=== PATIENT | female | born 1990 | race Caucasian/White ===

== ENCOUNTER 2016-10-06 18:07 | Emergency (ER) | payer OTHER ==
--- NOTE | 2016-10-06 18:12 | PDOC ---
Rapid Medical Evaluation Time Seen by Provider: 10/06/16 18:11 Medical Evaluation: Allergies Allergy/AdvReac Type Severity Reaction Status Date / Time No Known Allergies Allergy Verified 06/21/16 17:23 10/06/16 18:11 25 yo F /26 weeks gestation c/o lower abd [id number] Denies vaginal bleed. Will be sent to OB to be monitored. 10/06/16 18:13
[2016-10-06 18:13] VITALS: BMI 39.0
[2016-10-06 18:51] VITALS: BP 115/61; PULSE 79; TEMP 98.4
[2016-10-06] MEDS ORDERED: DEXTROSE 5%-LACTATED RINGERS 500 ML IV ONE ×2 (19:30→20:30)
== END 2016-10-06 20:40 | disposition home or self-care (01) ==
LOC: JER 18:07
DX: O26.892 Other specified pregnancy related conditions, second trimester (principal); R10.30 Lower abdominal pain, unspecified; Z3A.26 26 weeks gestation of pregnancy
CPT/HCPCS: 99281-25

== ENCOUNTER 2016-12-29 01:30 | Inpatient (IN) | payer OTHER ==
[2016-12-29] MEDS ORDERED: ELECTROLYTE-148 SOLN 500 ML IV ONE ×3 (02:40→03:10)
[2016-12-29] MEDS ORDERED: CITRIC ACID/SODIUM CITRATE 30 ML UNIT-DOSE CUP PO ONE (02:40)
[2016-12-29 03:00] LABS: EOSINOPHIL 0.3 % (0-4.5); MCH 30.3 pg (25.7-33.7); MCHC 33.8 g/dl (32.0-36.0); MEAN CELL VOLUME 89.6 fl (80-96); NEUTROPHILS 79.2 % (42.8-82.8); PLATELET COUNT 163 K/MM3 (134-434); RDW 15.8 % (11.6-15.6); WHITE BLOOD COUNT 10.9 K/mm3 (4.0-10.0)
[2016-12-29 03:12] LABS: INR 1.03 (0.82-1.09); PROTHROMBIN TIME (PATIENT) 11.3 SEC (9.98-11.88)
[2016-12-29 03:14] LABS: ACTIVATED PTT 31.8 SECONDS (26.9-34.4)
[2016-12-29 03:20] LABS: CALCIUM 7.9 mg/dL (8.5-10.1); CREATININE 0.7 mg/dL (0.55-1.02)
[2016-12-29 04:06] VITALS: BMI 37.8
[2016-12-29] MEDS ORDERED: AMPICILLIN - 2 GM in SODIUM CHLORIDE 100 ML IVPB ONE (04:20)
[2016-12-29] MEDS ORDERED: ELECTROLYTE-148 SOLN 1,000 ML IV SCH (05:00)
--- NOTE | 2016-12-29 05:13 | HP ---
Past Medical History - Primary Care Physician PCP:: Kristen Daley - Admission Chief Complaint: 26 yrs 38.6 weeks by sono onset of LP since 12 .00 midnight. previous c/section, inearly labor, requests for c/section. Morbidly obese patient History of Present Illness: pNC at [facility] . Wt gain 26 lbs work UP : A pos, Rpr nr, Rubella pos, Hbsag neg, Quqntiferon neg, Hiv neg, Gbs pos, Ct/Gc neg, Pngt 124 Serial growth sono done by MFM. 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 ) ...Term: 1 ...: 0 ...Spon : 0 ...Induced : 0 ...Multiple Gestation: 0 ...LMP: 04/05/16 ... Weeks Gestation by Dates: 38.2 ...EDC by Dates: 01/10/17 ...EDC by Sono: 01/07/17 (38.5 weeks by sono ) Heme/Onc: Yes: Anemia Infectious Disease: No: AIDS, HIV, STD's Psych: No: Addictions, Anxiety, Bipolar, Depression Endocrine: No: Diabetes Insipidus, Diabetes Mellitus, Hyperthyroidism, Hypothyroidism - Past Surgical History Past Surgical History: Yes: (07/2014) Hx Myomectomy: No Hx Transabdominal Cerclage: No - Smoking History Smoking history: Never smoked Have you smoked in the past 12 months: No Aproximately how many cigarettes per day: 0 - Alcohol/Substance Use Hx Alcohol Use: No History of Substance Use: reports: None - Social History History of Recent Travel: No Home Medications - Allergies Allergies/Adverse Reactions: Allergies Allergy/AdvReac Type Severity Reaction Status Date / Time No Known Allergies Allergy Verified 12/17/16 13:04 - Home Medications Home Medications: Ambulatory Orders Vit/Iron Fumarate/FA [ Tablet] 1 each PO DAILY 05/27/14 Ferrous Sulfate [Feosol] 325 mg PO DAILY 12/17/16 Physical Exam - Maternity Vital Signs: Vital Signs Temperature 98.9 F 12/29/16 02:40 Pulse Rate 72 12/29/16 02:40 Respiratory Rate 20 12/29/16 02:40 Blood Pressure 131/81 12/29/16 02:40 O2 Sat by Pulse Oximetry (%) Constitutional: Yes: Well Nourished, Moderate Distress, Obese Eyes: Yes: WNL HENT: Yes: WNL, Normocephalic Neck: Yes: WNL Cardiovascular: Yes: WNL, Regular Rate and Rhythm Lungs: Clear to auscultation Breast(s): Yes: WNL - Abdominal Exam/OB Fundal Height: 40 Number of Fetuses: Single Presentation: Vertex Contractions: Yes Regularity: Irregular Intensity: Mild/Mod Monitor Mode: External Heart Rate (range): 150 Heart Rate Location: [facility] Category: I Accelerations: Uniform Decelerations: None - Vaginal Exam/OB Vaginal Bleediing: No Speculum Exam: No Dilatation (cm): 1 Effacement (%): 70 Amniotic Membrane Status: Intact Presentation: Vertex/Position Station: -3 - Physical Exam Musculoskeletal: Yes: WNL Extremities: Yes: WNL. No: Calf Tenderness Edema: Yes Edema: LLE: 1+, RLE: 1+ Integumentary: Yes: Incision (pfannensteil incision scar) Deep Tendon Reflex Grade: Normal +2 ...Motor Strength: WNL Psychiatric: Yes: WNL, Alert, Oriented - Labs Lab Results: CBC, BMP 12/29/16 02:45 12/29/16 02:45 Laboratory Tests 12/29/16 12/29/16 02:45 02:45 INR 1.03 PTT (Actin FS) 31.8 Blood Type A POSITIVE Hemorrhage Risk Assessment - Risk Factors Risk Score: 2 Risk Level: High Risk Problem List - Problems (1) 38 to 41 weeks gestation of Code(s): NSJ8613 - (2) Previous section complicating Code(s): O34.219 - MATERNAL CARE FOR UNSP TYPE SCAR FROM PREVIOUS DEL (3) Labor established Code(s): QCT1177 - (4) Obesity (BMI 35.0-39.9 without comorbidity) Code(s): E66.9 - OBESITY, UNSPECIFIED Assessment/Plan 26 yrs 38.5 weeks by judaho, 38.2 weeks by edwin ,previous c/s, mobidly obese, in early labor, requests for Repeat c/ection GBS pos , IV Ampicillin started 2 gm Plan Repeat LFTC/Section
[2016-12-29] MEDS ORDERED: ONDANSETRON 4 MG/2 ML VIAL IVPB PRN (06:35)
[2016-12-29] MEDS ORDERED: METHYLERGONOVINE MALEATE 0.2 MG/1 ML AMP IM PRN (07:05)
[2016-12-29] MEDS ORDERED: D5W-LR W/ 20 UNITS OXYTOCIN 1,000 ML IV SCH (07:15)
--- NOTE | 2016-12-29 07:18 | PN ---
Delivery - Delivery Section: Repeat, Low Flap Transverse (Indication 38.5 weeks, previous c /section in labor, obesity) Type of Anesthesia: Spinal Episiotomy/Laceration: None EBL (cc): 600 (obrien out put 100 ml leander color ) Delivery, Single - Stages of Labor Date 1st Stage Initiatied: 12/29/16 Time 1st Stage Initiated: 00:00 Date of Delivery: 12/29/16 Time of Delivery: 06:18 Time Placenta Delivered: 06:19 Placenta: Yes: Expressed, Uterine Exploration - Condition of Solar Sales Advisor/Pupil Personnel Services Director Present: Yes Name: Meche Liang Infant Gender: Male Weight: 6 lb 10 oz Position: Right, OT Total Hours ROM (Hrs/Mins): 7min - 1 Minute Total Score: 7 5 Minutes Total Score: 9 - Feeding Plan Initial Plan: Exclusive throughout hospitalization Remarks - Remarks Remarks: 26 yrs , 38.5 weeks , previous c/section in labor , obese, GBS pos , rx IV Ampicillin 2gm preop followed by iv Ancef 1 gm ivpb prior to incision pnc at [facility]
--- NOTE | 2016-12-29 07:24 | OP ---
Operative Note - Note: Operative Date: 12/29/16 Pre-Operative Diagnosis: 38.5 weeks, previous c/section in labor Operation: Repeat LFTC/section Findings: 6.18 am, Baby Boy, VX ROT position , cord & hand besides head , 7/9, WT 6 '10" Ht [address] iLang present in the OR Both tubes & ovaries normal Surgeon: Kristen Daley Marble Setter: Loco Patricio Anesthesiologist/BINDER AND WRAPPER PACKER: Tomás Abraham Anesthesia: Spinal Specimens Removed: placenta. cord segment for blood gas. cord blood Estimated Blood Loss (mls): 600 Drains, Volume Out (mls): 100 (obrien out put leander color ) Fluid Volume Replaced (mls): 1,000 (iv ancef 1 gm prior to incision ) Operative Report Dictated: Yes
[2016-12-29] MEDS ORDERED: AMPICILLIN - 1 GM in SODIUM CHLORIDE 100 ML IVPB SCH (08:20)
[2016-12-29] MEDS: IBUPROFEN 800 MG/8 ML IJ IVPB PRN ×2 (08:25→22:20)
--- NOTE | 2016-12-29 13:05 | OP ---
DATE OF OPERATION: 12/29/2016 PREOPERATIVE DIAGNOSIS: A 38.5-week , previous section, in labor, request for repeat section, and morbid obesity. PROCEDURE PERFORMED: Repeat [id number] section. SURGEON: Kristen Daley MD SOCIAL SCIENCE PROFESSOR: Loco Patricio MD ANESTHESIOLOGIST: Tomás Abraham MD ANESTHESIA: Spinal. INDICATIONS: This is a 26-year-old 2, para 1-0-0-1, with previous section, who presented in labor, onset of labor since midnight. She was 1 cm, 70% effaced, vertex and -3 station. The patient's weight is 194 pounds, BMI 37.9. DESCRIPTION OF PROCEDURE: The patient was taken to the operating room table. The abdomen was shaved and draped. A Krueger catheter was placed. Spinal anesthesia was given. The patient was placed in the supine position. The abdominal fat was pulled up with tape, and the area of the incision was clear. Then the abdomen was prepped with ChloraPrep. A Pfannenstiel incision was made through the previous scar, skin and subcutaneous tissue. The anterior rectus sheath was incised transversely. Bleeding points were clamped and cauterized. The rectus muscle was . Then the parietal peritoneum was opened vertically. Then the lower flap by the peritoneum was identified, which was incised transversely. The lower uterine segment was incised transversely. The amniotic fluid was clear. The baby's head was seen with a loop of cord by the side of the baby's head and the hand. Hand was attempted to be pushed up. Difficulty was encountered in delivering the head Since the patient was obese, it was difficult to bring the baby out of the incision. So the Mityvac vacuum cup was applied. And tried to bring the baby out of the incision. The baby was delivered at 6:18 a.m. Apgars were 7 and 9. Cord was clamped and cut. Cord segment was sent for cord blood gas and cord blood was collected. The placenta was removed completely with the membranes. The baby was handed over to the investigation clerk, Dr.ware Mcgregor She was present in the room. Baby's weight was 6 pounds 10 ounces, length 19 inches. The uterus was brought out of the incision. The uterine cavity was completely cleaned of the membranes. Then the uterine incision was closed in 2 layers. The 1st layer was a continuous locking with Biosyn 0 suture. The 2nd layer was continuous intermittent locking with Biosyn 0 suture. Vertical mattress sutures were taken for the 2nd sense. The bladder peritoneum also was closed with Biosyn 0 suture. Both tubes and ovaries were normal. Irrigation was done. The uterus was placed back into the peritoneal cavity. Sponge, instrument and needle counts were correct. Then closure of the abdomen was done. The parietal peritoneum was closed with Vicryl 0 suture. The muscles were approximated together with Vicryl 0 suture; interrupted sutures were taken. The anterior rectus sheath was closed with Vicryl 0 continuous sutures. Before closure of the anterior rectus sheath, the flaps underneath were checked for hemostasis. Subcutaneous tissue hemostasis was checked. The subcutaneous tissue was approximated with Vicryl 0 interrupted sutures, and then the skin was approximated with chiara. A pressure dressing was given. Blood clots were removed from the vagina. The patient was transferred to the recovery room in stable condition. Estimated blood loss was 600 mL. Intraoperative urine output was 100 mL; it was leander colored. Antonette [id number] MTDD
[2016-12-29] MEDS: CEFAZOLIN (PRE-DOCKED) 50 ML IVPB SCH ×2 (14:17→21:39)
[2016-12-29] MEDS: ENOXAPARIN NA (PORCINE) 40 MG/0.4 ML DISP.SYRIN SQ SCH (21:39)
[2016-12-29] MEDS ORDERED: oxyCODONE HCL 5 MG TABLET PO PRN (22:00)
[2016-12-30] MEDS: CEFAZOLIN (PRE-DOCKED) 50 ML IVPB SCH (05:59)
[2016-12-30] MEDS: ACETAMINOPHEN 325 MG TABLET (FP) PO PRN (06:00)
[2016-12-30] MEDS: SIMETHICONE 80 MG TAB.CHEW (FP) PO PRN ×5 (06:00→22:02)
[2016-12-30] MEDS: IBUPROFEN 600 MG TABLET (FP) PO PRN ×5 (06:00→22:02)
[2016-12-30] MEDS ORDERED: BISACODYL 10 MG SUPP.RECT RC PRN (07:05)
--- NOTE | 2016-12-30 07:26 | PN ---
Post Progress Note Post Day: 1 Type of Delivery: Repeat C/S Vital Signs: Vital Signs Temperature 98.0 F 12/30/16 06:00 Pulse Rate 67 12/30/16 06:00 Respiratory Rate 20 12/30/16 06:00 Blood Pressure 145/86 12/30/16 06:00 O2 Sat by Pulse Oximetry (%) 99 12/29/16 08:25 Breast Exam: Yes: Soft Uterus: Yes: Fundus Firm Incision: Yes: Dressing dry and intact Abdomen/GI: Yes: Abdomen soft Lochia: Yes: Rubra Lochia, amount: Small Extremities: Yes: Calves non-tender Perineum: Yes: Intact Activity: Ambulating - Labs Labs: CBC WBC 10.9 K/mm3 (4.0-10.0) H 12/29/16 02:45 RBC 4.17 M/mm3 (3.60-5.2) 12/29/16 02:45 Hgb 12.6 GM/dL (10.7-15.3) 12/29/16 02:45 Hct 37.3 % (32.4-45.2) 12/29/16 02:45 MCV 89.6 fl (80-96) 12/29/16 02:45 MCHC 33.8 g/dl (32.0-36.0) 12/29/16 02:45 RDW 15.8 % (11.6-15.6) H D 12/29/16 02:45 Plt Count 163 K/MM3 (134-434) D 12/29/16 02:45 MPV 9.0 fl (7.5-11.1) D 12/29/16 02:45 Neutrophils % 79.2 % (42.8-82.8) D 12/29/16 02:45 Lymphocytes % 14.6 % (8-40) D 12/29/16 02:45 Monocytes % 4.9 % (3.8-10.2) 12/29/16 02:45 Eosinophils % 0.3 % (0-4.5) D 12/29/16 02:45 Basophils % 1.0 % (0-2.0) 12/29/16 02:45 Assessment/Plan as above oob check labs reg diet pain meds
--- NOTE | 2016-12-30 08:06 | PN ---
Progress Note (short form) - Note Progress Note: Post op day#1.S/P C section under spinal anesthesia with duramorph uneventful.Patient stable and has little pain for which she is on medication.No any anesthesia related problem.Patient DC from the anesthesia care.
[2016-12-30 09:13] LABS: BASOPHIL 0.3 % (0-2.0); EOSINOPHIL 0.3 % (0-4.5); MCH 30.9 pg (25.7-33.7); MCHC 34.5 g/dl (32.0-36.0); MEAN CELL VOLUME 89.5 fl (80-96); MEAN PLT VOLUME 8.3 fl (7.5-11.1); NEUTROPHILS 78.7 % (42.8-82.8); PLATELET COUNT 174 K/MM3 (134-434); RDW 15.9 % (11.6-15.6); WHITE BLOOD COUNT 11.2 K/mm3 (4.0-10.0)
[2016-12-30] MEDS: oxyCODONE HCL 5 MG TABLET PO PRN ×4 (09:22→22:02)
[2016-12-30] MEDS: PRENATAL VITAMINS W/ FOLIC ACID TABLET (FP) PO SCH (09:26)
[2016-12-30] MEDS ORDERED: DIPHTH,PERTUSS(ACELL),TET 0.5 ML DISP.SYRIN IM ONE (10:00)
[2016-12-30] MEDS: SENNOSIDES/DOCUSATE COMBO (SENNA PLUS) TABLET (UD) PO PRN (20:07)
[2016-12-30] MEDS: ENOXAPARIN NA (PORCINE) 40 MG/0.4 ML DISP.SYRIN SQ SCH (21:00)
[2016-12-30] MEDS: FERROUS SO4 325 MG TABLET (FP) PO SCH (21:18)
[2016-12-31] MEDS: SIMETHICONE 80 MG TAB.CHEW (FP) PO PRN ×3 (02:07→21:38)
[2016-12-31] MEDS: IBUPROFEN 600 MG TABLET (FP) PO PRN ×4 (02:07→21:39)
[2016-12-31] MEDS: oxyCODONE HCL 5 MG TABLET PO PRN ×2 (02:09→07:12)
--- NOTE | 2016-12-31 09:17 | PN ---
Progress Note (short form) - Note Progress Note: pod 2 doing well, ambulating, CBC, BMP 12/30/16 08:00 12/29/16 02:45 Last Vital Signs Temp Pulse Resp BP Pulse Ox 98 F 80 20 126/86 99 12/31/16 09:00 12/31/16 09:00 12/31/16 09:00 12/31/16 09:00 12/29/16 08:25 abdomen soft, no distension, no cva incision dry, clean no calf tenderness plan ambulate, cbc in am
[2016-12-31] MEDS: PRENATAL VITAMINS W/ FOLIC ACID TABLET (FP) PO SCH (09:29)
[2016-12-31] MEDS: FERROUS SO4 325 MG TABLET (FP) PO SCH ×2 (09:29→21:44)
[2016-12-31] MEDS: ACETAMINOPHEN 325 MG TABLET (FP) PO PRN ×2 (14:45→21:41)
[2016-12-31] MEDS: ENOXAPARIN NA (PORCINE) 40 MG/0.4 ML DISP.SYRIN SQ SCH (21:37)
[2016-12-31] MEDS: SENNOSIDES/DOCUSATE COMBO (SENNA PLUS) TABLET (UD) PO PRN (21:42)
--- NOTE | 2017-01-01 03:26 | PN ---
Post Progress Note Post Day: 3 Type of Delivery: Repeat C/S Vital Signs: Vital Signs Temperature 98.6 F 12/31/16 22:00 Pulse Rate 82 12/31/16 22:00 Respiratory Rate 18 12/31/16 22:00 Blood Pressure 133/75 12/31/16 22:00 O2 Sat by Pulse Oximetry (%) 99 12/29/16 08:25 Breast Exam: Yes: Soft Uterus: Yes: Fundus Firm Incision: Yes: Elías intact Abdomen/GI: Yes: Abdomen soft Lochia: Yes: Rubra Lochia, amount: Small Perineum: Yes: Intact Activity: Ambulating - Labs Labs: CBC WBC 11.2 K/mm3 (4.0-10.0) H 12/30/16 08:00 RBC 4.22 M/mm3 (3.60-5.2) 12/30/16 08:00 Hgb 13.0 GM/dL (10.7-15.3) 12/30/16 08:00 Hct 37.8 % (32.4-45.2) 12/30/16 08:00 MCV 89.5 fl (80-96) 12/30/16 08:00 MCHC 34.5 g/dl (32.0-36.0) 12/30/16 08:00 RDW 15.9 % (11.6-15.6) H 12/30/16 08:00 Plt Count 174 K/MM3 (134-434) 12/30/16 08:00 MPV 8.3 fl (7.5-11.1) 12/30/16 08:00 Neutrophils % 78.7 % (42.8-82.8) 12/30/16 08:00 Lymphocytes % 17.5 % (8-40) 12/30/16 08:00 Monocytes % 3.2 % (3.8-10.2) L 12/30/16 08:00 Eosinophils % 0.3 % (0-4.5) 12/30/16 08:00 Basophils % 0.3 % (0-2.0) 12/30/16 08:00 Assessment/Plan as above continue care oob reg diet
[2017-01-01] MEDS: IBUPROFEN 600 MG TABLET (FP) PO PRN (06:20)
[2017-01-01] MEDS: SIMETHICONE 80 MG TAB.CHEW (FP) PO PRN (06:20)
[2017-01-01] MEDS: ACETAMINOPHEN 325 MG TABLET (FP) PO PRN (06:22)
[2017-01-01 08:50] VITALS: BP 134/80; PULSE 72; TEMP 97.8
[2017-01-01 09:03] LABS: BASOPHIL 0.2 % (0-2.0); EOSINOPHIL 1.6 % (0-4.5); MCHC 34.4 g/dl (32.0-36.0); MEAN CELL VOLUME 90.2 fl (80-96); MEAN PLT VOLUME 7.8 fl (7.5-11.1); NEUTROPHILS 73.4 % (42.8-82.8); PLATELET COUNT 220 K/MM3 (134-434); RDW 15.7 % (11.6-15.6)
[2017-01-01] MEDS: FERROUS SO4 325 MG TABLET (FP) PO SCH (09:17)
[2017-01-01] MEDS: PRENATAL VITAMINS W/ FOLIC ACID TABLET (FP) PO SCH (09:17)
--- NOTE | 2017-01-04 14:38 | PATH ---
Surgical Pathology Report Patient Name: SIMONE URBAN Med. Rec. 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 Specimen(s) Received PLACENTA Clinical History , 38.5 weeks, previous c/section in labor Repeat c/section Final Diagnosis PLACENTA, DELIVERY: FOCALLY DISRUPTED THIRD TRIMESTER PLACENTA WITH FOCAL INFARCT, MARKED INCREASE IN PREVILLOUS, PERIVILLOUS, AND PRECHORIONIC FIBRIN DEPOSITION, THREE VESSEL UMBILICAL CORD, AND PLACENTAL MEMBRANES WITH FOCAL ACUTE CHORIOAMNIONITIS AND FOCAL LAMELLAR NECROSIS. Electronically Signed Terence Mercado M.D. Gross Description The specimen is received fresh, labeled "placenta" and is a 674 gram, 16.0 x 15.5 x 4.0 cm placenta with attached membranes and umbilical cord. The attached membranes are flores with focal opacities and insert marginally. The umbilical cord measures 19 cm in length and averages 1.2 cm in diameter. The cord inserts eccentrically, 3.5 cm to the nearest margin. No true knots or strictures are identified. Cut surface of the umbilical cord reveals 3 vessels. The surface is velarde-blue with fibrin deposition and appropriate caliber vessels. The maternal surface is red-brown with focal defects. Sectioning reveals a 3 cm in greatest dimension flores, firm intraparenchymal lesion. The remaining placental parenchyma is red-brown and spongy. Forklift Supervisor sections are submitted in 4 cassettes as follows: 1-membrane rolls and umbilical cord; 2-lesion; 3-4-full thickness sections of placenta. /12/31/2016 saudi12/31/2016
--- NOTE | 2017-01-04 17:54 | DS ---
Physical Exam-RETAIL PERFORMANCE SPECIALIST Vital Signs: Vital Signs Temperature 97.8 F 01/01/17 07:30 Pulse Rate 72 01/01/17 07:30 Respiratory Rate 20 01/01/17 07:30 Blood Pressure 134/80 01/01/17 07:30 O2 Sat by Pulse Oximetry (%) 99 12/29/16 08:25 Constitutional: Yes: Well Nourished, Obese Eyes: Yes: WNL HENT: Yes: WNL, Normocephalic Neck: Yes: WNL Cardiovascular: Yes: WNL Respiratory: Yes: WNL Gastrointestinal: Yes: WNL, Normal Bowel Sounds, Soft, Abdomen, Obese. No: Distention ...Rectal Exam: Yes: WNL Renal/: Yes: WNL, Other (voiding without difficulty) ....Post : Yes: Uterus firm, Uterus non-tender, Moderate lochia rubra Breast(s): Yes: WNL (BF) Musculoskeletal: Yes: WNL Extremities: Yes: WNL. No: Calf Tenderness Edema: Yes Edema: LLE: 1+, RLE: 1+ Integumentary: Yes: WNL, Incision Wound/Incision: Yes: Clean/Dry, Well Approximated, [place] Intact, Open to air. No: Draining, Reddened, Bleeding Neurological: Yes: WNL, Alert, Oriented ...Motor Strength: WNL Psychiatric: Yes: WNL, Alert, Oriented Labs: CBC, BMP 01/01/17 08:00 12/29/16 02:45 Delivery - Delivery Section: Repeat, Low Flap Transverse (Indication 38.5 weeks, previous c /section in labor, obesity) Type of Anesthesia: Spinal Episiotomy/Laceration: None EBL (cc): 600 (obrien out put 100 ml leander color ) Delivery, Single - Stages of Labor Date 1st Stage Initiatied: 12/29/16 Time 1st Stage Initiated: 00:00 Date of Delivery: 12/29/16 Time of Delivery: 06:18 Time Placenta Delivered: 06:19 Placenta: Yes: Expressed, Uterine Exploration - Condition of Industrial Machine System Technician/Molding Cutter Present: Yes Name: Meche Liang Infant Gender: Male Weight: 6 lb 10 oz Position: Right, OT Total Hours ROM (Hrs/Mins): 7min - 1 Minute Total Score: 7 5 Minutes Total Score: 9 - Feeding Plan Initial Plan: Exclusive throughout hospitalization Remarks - Remarks Remarks: 26 yrs , 38.5 weeks , previous c/section in labor , obese, GBS pos , rx IV Ampicillin 2gm preop followed by iv Ancef 1 gm ivpb prior to incision pnc at [facility] . post op course uneventful discharged on 01/01/17 she will RTC on 01/04/17 for chiara removal Discharge Summary Reason For Visit: IN LABOR Condition: Stable - Instructions Diet, Activity, Other Instructions: Post Instructions DIET: Continue good diet high in protein, calcium, and iron rich foods. Drink at least eight (8) glasses of water daily in addition to other fluids. Ct Regular diet MEDICATIONS: Continue vitamins and iron as previously directed. Motrin and Tylenol may be taken for minor discomfort. ACTIVITY: Mild to moderate exercise may be started in two (2) weeks. Take frequent rest periods. Resume normal activity after six (6) week check up. WOUND CARE OF OPERATIVE SITE: Continue use of perineal bottle until vaginal discharge stops. Keep area clean. Shower daily. Keep abdominal wound dry. Report any drainage or redness to physician. Tub baths, tampons and douches are not permitted for [address] Breast feeding & or Bottle feeding BREAST CARE: (For those that are not breast feeding): If engorgement occurs: Wear tight fitting bra. Take Tylenol or Motrin for pain. Apply cold packs (ice in bags to each breast ) FAMILY PLANNING: There are many control alternatives to pursue and they should be discussed at your first office visit. You may resume sexual activity after your six (6) week check up. (Remember, breast feeding is not a contraceptive) NEXT PHYSICIAN APPOINTMENT: Be certain to call for a one (1) week appointment, unless otherwise directed. RTC Tuesday for chiara removal Call Clinic or got to Emergency Dept if you have any of the following: Heavy vaginal bleeding Painful urination Leg pain Unusual odor noted to vaginal bleeding High fever Red streaking noted on breast Referrals: Kristen Daley MD [Staff Physician] - Disposition: HOME - Home Medications Comprehensive Discharge Medication List: Ambulatory Orders Vit/Iron Fumarate/FA [ Tablet] 1 each PO DAILY 05/27/14 Acetaminophen [Tylenol .Regular Strength -] 650 mg PO Q4H PRN #0 tablet Ferrous Sulfate [Feosol] 325 mg PO DAILY #0 tab 12/30/16 Ibuprofen [Motrin -] 600 mg PO Q4H PRN #30 tablet 12/30/16 Vitamins (Sjr) - 1 tab PO DAILY tablet 12/30/16
== END 2017-01-01 14:15 | disposition home or self-care (01) | DRG 766 ==
LOC: JDEL 01:30 → JLDR 02:40 → J3W 08:53
PROVIDERS: ADMIT Obstetrics & Gynecology; ATTEND Obstetrics & Gynecology
PROC: 10D00Z1 Extraction of Products of Conception, Low, Open Approach (ICD-10-PCS; principal; 2016-12-29)
DX: O34.211 Maternal care for low transverse scar from previous cesarean delivery (principal); O99.214 Obesity complicating childbirth; E66.01 Morbid (severe) obesity due to excess calories; Z68.37 Body mass index [BMI] 37.0-37.9, adult; Z71.3 Dietary counseling and surveillance; Z3A.38 38 weeks gestation of pregnancy; Z37.0 Single live birth
CPT/HCPCS: 36415; 80048; 85025; 85610; 85730; 86593; 86850; 86900; 86901; 88307-TC; 90715; 94010

== ENCOUNTER 2017-04-06 04:32 | Emergency (ER) | payer OTHER ==
[2017-04-06 04:46] VITALS: BP 114/65; PULSE 80; BMI 37.0
--- NOTE | 2017-04-06 04:58 | PDOC ---
History of Present Illness - General Chief Complaint: Wound Stated Complaint: PIMPLE WITH PUSS ON LEG Time Seen by Provider: 04/06/17 04:47 History Source: Patient - History of Present Illness Initial Comments: 04/06/17 04:53 26 year old female with history of axila abscess now presents with multiple pustulkes to groin, legs and buttosk. + large area of induration with fluctuant to left buttocks. denies fever, nvd, abdominal pain d 04/06/17 04:56 Past History - Past Medical History Allergies/Adverse Reactions: Allergies Allergy/AdvReac Type Severity Reaction Status Date / Time No Known Allergies Allergy Verified 04/06/17 04:43 Home Medications: Ambulatory Orders Cephalexin Monohydrate [Keflex -] 500 mg PO Q8H #30 capsule 04/06/17 Ibuprofen 600 mg PO QID #30 tablet 04/06/17 Sulfamethoxazole/Trimethoprim [Bactrim Ds -] 1 tab PO BID #20 tablet 04/06/17 Asthma: No Cancer: No Cardiac Disorders: No Diabetes: No HTN: No Seizures: No Thyroid Disease: No - Reproductive History (#): 2 Para: 1 - Immunization History Td Vaccination: Yes TDAP Vaccination: No Immunization Up to Date: Yes - Psycho/Social/Smoking Cessation Hx Anxiety: No Suicidal Ideation: No Smoking Status: No Smoking History: Never smoked Years of Tobacco Use: 0 Have you smoked in the past 12 months: No Number of Cigarettes Smoked Daily: 0 Cigars Per Day: 0 Information on smoking cessation initiated: No Hx Alcohol Use: No Drug/Substance Use Hx: No Substance Use Type: None Hx Substance Use Treatment: No Review of Systems - Review of Systems Able to Perform ROS?: Yes Is the patient limited Upper Sorbian proficient: No Constitutional: No: Symptoms Reported, See HPI, Chills, Diaphoresis, Fever, Loss of Appetite, Malaise, Night Sweats, Weakness, Weight Stable, Unintentional Wgt. Loss, Unexplained wgt Loss, Other *Physical Exam - Vital Signs Last Vital Signs Temp Pulse Resp BP Pulse Ox 80 14 114/65 100 04/06/17 04:43 04/06/17 04:43 04/06/17 04:43 04/06/17 04:43 - Physical Exam General Appearance: Yes: Appropriately Dressed Respiratory/Chest: positive: Lungs Clear, Normal Breath Sounds Gastrointestinal/Abdominal: positive: Normal Bowel Sounds, Soft Integumentary: positive: Other (left buttock abscess) Neurologic: positive: Fully Oriented, Alert Procedures - Incision and Drainage I&D Site: Left: Buttock Anesthesia: 1% Lidocaine Blade Size: 11 Plain Packing: No Progress: 04/06/17 06:34 wound drained ~ 1ml of pus with surround erythema Progress Note - Progress Note Progress Note: A: cellulitis with abscess P: see procedure note. I&D cover for MRSA/ strep *DC/Admit/Observation/Transfer Diagnosis at time of Disposition: Cellulitis and abscess of buttock, Staph infection - Discharge Dispostion Disposition: HOME - Prescriptions Prescriptions: Sulfamethoxazole/Trimethoprim [Bactrim Ds -] 1 tab PO BID #20 tablet Ibuprofen 600 mg PO QID #30 tablet Cephalexin Monohydrate [Keflex -] 500 mg PO Q8H #30 capsule - Patient Instructions Printed Discharge Instructions: DI for Methicillin-Resistant Staph Infection ( MRSA) Additional Instructions: take antibiotics as prescribed. follow up with your doctor for a wound check. return to the ED if symptoms worsen.
[2017-04-06] MEDS ORDERED: LIDOCAINE HCL 1%, 10 MG/ML (20ML VIAL) ONE (05:05)
[2017-04-06] MEDS ORDERED: SULFAMETHOXAZOLE/TRIMETHOPRIM 800MG/160MG D.S. TABLET PO ONE (06:30)
[2017-04-06] MEDS ORDERED: CEPHALEXIN MONOHYDRATE 500 MG CAPSULE (UD) PO ONE (06:30)
[2017-04-06] MEDS ORDERED: SULFAMETHOXAZOLE/TRIMETHOPRIM 800MG/160MG D.S. TABLET ONE (06:46)
== END 2017-04-06 07:10 | disposition home or self-care (01) ==
LOC: JER 04:32
PROC: 0H98XZZ Drainage of Buttock Skin, External Approach (ICD-10-PCS; principal; 2017-04-06)
DX: L02.31 Cutaneous abscess of buttock (principal); B95.8 Unspecified staphylococcus as the cause of diseases classified elsewhere
CPT/HCPCS: 99282-25

== ENCOUNTER 2017-05-17 04:57 | Emergency (ER) | payer OTHER ==
[2017-05-17 05:20] VITALS: BMI 37.0
[2017-05-17] MEDS ORDERED: morphine CARPU-JECT 4 MG/1 ML DISP.SYRIN IVPUSH ONE (05:25)
[2017-05-17] MEDS ORDERED: SODIUM CHLORIDE 1,000 ML IV STA (05:25)
[2017-05-17] MEDS ORDERED: ONDANSETRON 4 MG/2 ML VIAL IVPUSH ONE (05:27)
--- NOTE | 2017-05-17 05:28 | PDOC ---
Attending Attestation - HPI HPI: 05/17/17 05:55 26 y/o F with no significant PMHx presents to the ED with constant RUQ pain for one day. Patient reports it is worsened with food. She reports associated chills and nausea. She also reports 4 episodes of non-bloody diarrhea. Denies vomiting, fever. Denies chest pain, SOB. - Physicial Exam PE: 05/17/17 05:55 GENERAL: Awake, alert, and fully oriented, in no acute distress HEAD: No signs of trauma EYES: PERRLA, EOMI, sclera anicteric, conjunctiva clear ENT: Auricles normal inspection, hearing grossly normal, nares patent, oropharynx clear without exudates. Moist mucosa NECK: Normal ROM, supple, no lymphadenopathy, JVD, or masses LUNGS: Breath sounds equal, clear to auscultation bilaterally. No wheezes, and no crackles HEART: Regular rate and rhythm, normal S1 and S2, no murmurs, rubs or gallops ABDOMEN: Tender to RUQ, epigastric and LUQ. Soft,normoactive bowel sounds. No guarding, no rebound. No masses EXTREMITIES: Normal range of motion, no edema. No clubbing or cyanosis. No cords, erythema, or tenderness NEUROLOGICAL: Cranial nerves II through XII grossly intact. Normal speech, normal gait SKIN: Warm, Dry, normal turgor, no rashes or lesions noted. Bedside US negative for gallbladder wall thickening, pericystic fluid or gallstones. - Medical Decision Making 05/17/17 05:56 Documentation prepared by Tabby Churchill, acting as medical records receptionist for Ani Ca DO. <Tabby Churchill - Last Filed: 05/17/17 05:55> - Resident Resident Name: Malachi Nguyen - ED Attending Attestation I have performed the following: I have examined & evaluated the patient, The case was reviewed & discussed with the resident, I agree w/resident's findings & plan, Exceptions are as noted - Medical Decision Making 05/17/17 05:28 I, Dr. Ani Ca DO, attest that this document has been prepared under my direction and personally reviewed by me in its entirety. I further attest, that it accurately reflects all work, treatment, procedures and medical decision -making performed by me. 10/10/17 06:03 a/p: 26yo female with epigastric pain -pud vs gerd vs gastritis, vs acute dayan -labs -bedside ultrasound negative for acute dayan -gi cocktail, ivf, pain control, lipase for poss pancreatitis -reassess 05/17/17 06:44 pt will be signed out to the oncoming ED physician pending labs and re-eval <Ani Ca - Last Filed: 05/20/17 09:09>
[2017-05-17] MEDS ORDERED: MAG HYDROX/AL HYDROX/SIMETH 355 ML ORAL.SUSP PO ONE (05:41)
[2017-05-17] MEDS ORDERED: LIDOCAINE VISCOUS 2% ORAL/TOP 20 ML UNIT-DOSE CUP MM ONE (05:41)
[2017-05-17] MEDS ORDERED: FAMOTIDINE 20 MG/50 ML IVPB 50 ML IVPB ONE ×2 (05:41→06:29)
--- NOTE | 2017-05-17 05:48 | PDOC ---
History of Present Illness <Vito Baez - Last Filed: 05/17/17 10:50> - General History Source: Patient Exam Limitations: No Limitations - History of Present Illness Initial Comments: 05/17/17 05:42 26 y.o. F with no pmh presenting with abdominal pain. Pain is located in the RUQ , radiates to back and across abdomen, 05/17, and began 24 hours ago. Patient states food makes the pain worse. She endorses chills, nausea, diarrhea. Patient denies fever, vomiting, hematuria, dysuria. PMH- none PSH- none All-[facility] Sh- denies PCP- from [facility] 05/17/17 05:49 <Malachi Nguyen - Last Filed: 05/19/17 07:22> - General Chief Complaint: Pain Stated Complaint: PAIN Time Seen by Provider: 05/17/17 05:15 Past History <Vito Baez - Last Filed: 05/17/17 10:50> - Past Medical History Asthma: No Cancer: No Cardiac Disorders: No Diabetes: No HTN: No Seizures: No Thyroid Disease: No - Reproductive History (#): 2 Para: 1 - Immunization History Td Vaccination: Yes TDAP Vaccination: No Immunization Up to Date: Yes - Suicide/Smoking/Psychosocial Hx Smoking Status: No Smoking History: Never smoked Years of Tobacco Use: 0 Have you smoked in the past 12 months: No Number of Cigarettes Smoked Daily: 0 Cigars Per Day: 0 Information on smoking cessation initiated: No Hx Alcohol Use: No Drug/Substance Use Hx: No Substance Use Type: None Hx Substance Use Treatment: No <Malachi Nguyen - Last Filed: 05/19/17 07:22> - Past Medical History Allergies/Adverse Reactions: Allergies Allergy/AdvReac Type Severity Reaction Status Date / Time No Known Allergies Allergy Verified 05/17/17 05:18 Home Medications: Ambulatory Orders Ibuprofen 600 mg PO QID #30 tablet 04/06/17 Famotidine [Pepcid] 20 mg PO BID PRN #30 tablet 05/17/17 Mag Hydrox/Al Hydrox/Simeth [Maalox Advanced Suspension] 20 ml PO BID PRN #1 oral.susp 05/17/17 Review of Systems - Review of Systems Able to Perform ROS?: Yes Comments:: 05/17/17 05:47 GENERAL/CONSTITUTIONAL: No fever +chills. No weakness. HEAD, EYES, EARS, NOSE AND THROAT: No change in vision. No ear pain or discharge. No sore throat. CARDIOVASCULAR: No chest pain or shortness of breath RESPIRATORY: No cough, wheezing, or hemoptysis. GASTROINTESTINAL: +nausea, No vomiting, +diarrhea, No constipation. +abdominal pain GENITOURINARY: No dysuria, frequency, or change in urination. MUSCULOSKELETAL: No joint or muscle swelling or pain. No neck or back pain. SKIN: No rash NEUROLOGIC: No headache, vertigo, loss of consciousness, or change in strength/ sensation. ENDOCRINE: No increased thirst. No abnormal weight change HEMATOLOGIC/LYMPHATIC: No anemia, easy bleeding, or history of blood clots. ALLERGIC/IMMUNOLOGIC: No hives or skin allergy. Constitutional: Yes: Chills. No: Fever, Loss of Appetite ABD/GI: Yes: Diarrhea, Nausea : No: Dysuria, Hematuria <Malachi Nguyen - Last Filed: 05/19/17 07:22> *Physical Exam - Vital Signs Last Vital Signs Temp Pulse Resp BP Pulse Ox 97.9 F 76 14 129/85 100 05/17/17 10:05 05/17/17 10:05 05/17/17 10:05 05/17/17 10:05 05/17/17 10:05 <Vito Baez - Last Filed: 05/17/17 10:50> - Vital Signs Last Vital Signs Temp Pulse Resp BP Pulse Ox 97.3 F L 69 14 132/97 100 05/17/17 05:18 05/17/17 05:18 05/17/17 05:18 05/17/17 05:18 05/17/17 05:18 - Physical Exam Comments: 05/17/17 05:48 GENERAL: Awake, alert, and fully oriented, in mild distress HEAD: No signs of trauma, normocephalic, atraumatic EYES: PERRLA, EOMI, sclera anicteric, conjunctiva clear ENT: Auricles normal inspection, hearing grossly normal, nares patent, oropharynx clear without exudates. Moist mucosa NECK: Normal ROM, supple, no lymphadenopathy, JVD, or masses LUNGS: No distress, speaks full sentences, clear to auscultation bilaterally HEART: Regular rate and rhythm, normal S1 and S2, no murmurs, rubs or gallops, peripheral pulses normal and equal bilaterally. ABDOMEN: Soft, +Diffuse tenderness (RUQ, Epigastric, LUQ) +guarding, +CVA tenderness, normoactive bowel sounds. EXTREMITIES: Normal inspection, Normal range of motion, no edema. No clubbing or cyanosis. NEUROLOGICAL: Cranial nerves II through XII grossly intact. Normal speech, normal gait, no focal sensorimotor deficits SKIN: Warm, Dry, normal turgor, no rashes or lesions noted. General Appearance: Yes: Apparent Distress Respiratory/Chest: positive: Lungs Clear, Normal Breath Sounds Cardiovascular: positive: Regular Rhythm, Regular Rate, S1, S2 Gastrointestinal/Abdominal: positive: Normal Bowel Sounds, Tender (LUQ, EPIGASTRIC, AND RUQ), Soft <Malachi Nguyen - Last Filed: 05/19/17 07:22> ED Treatment Course - LABORATORY CBC & Chemistry Diagram: 05/17/17 06:23 05/17/17 07:18 - ADDITIONAL ORDERS Additional order review: Laboratory Results 05/17/17 05/17/17 05/17/17 07:18 07:18 06:23 PT with INR 12.40 H INR 1.13 PTT (Actin FS) 32.3 Sodium 139 Potassium 3.8 Chloride 106 Carbon Dioxide 25 Anion Gap 8 BUN 12 Creatinine 0.6 Creat Clearance w eGFR > 60 Random Glucose 104 D Calcium 8.9 Total Bilirubin 0.6 D AST 62 H D ALT 123 H D Alkaline Phosphatase 83 D Total Protein 7.6 D Albumin 3.7 D Lipase 117 Urine Color Urine Appearance Urine pH Ur Specific [place] Urine Protein Urine Glucose (UA) Urine Ketones Urine Blood Urine Nitrite Urine Bilirubin Urine Urobilinogen Ur Leukocyte Esterase Urine RBC Urine WBC Ur Epithelial Cells Urine Bacteria Urine HCG, Qual Negative Blood Type Antibody Screen Spec Expiration Date 05/17/17 05/17/17 05/17/17 06:23 06:23 06:23 PT with INR Cancelled INR Cancelled PTT (Actin FS) Cancelled Sodium Cancelled Potassium Cancelled Chloride Cancelled Carbon Dioxide Cancelled Anion Gap Cancelled BUN Cancelled Creatinine Cancelled Creat Clearance w eGFR Cancelled Random Glucose Cancelled Calcium Cancelled Total Bilirubin Cancelled AST Cancelled ALT Cancelled Alkaline Phosphatase Cancelled Total Protein Cancelled Albumin Cancelled Lipase Cancelled Urine Color Urine Appearance Urine pH Ur Specific [place] Urine Protein Urine Glucose (UA) Urine Ketones Urine Blood Urine Nitrite Urine Bilirubin Urine Urobilinogen Ur Leukocyte Esterase Urine RBC Urine WBC Ur Epithelial Cells Urine Bacteria Urine HCG, Qual Blood Type Cancelled Antibody Screen Cancelled Spec Expiration Date Cancelled 05/17/17 06:23 PT with INR INR PTT (Actin FS) Sodium Potassium Chloride Carbon Dioxide Anion Gap BUN Creatinine Creat Clearance w eGFR Random Glucose Calcium Total Bilirubin AST ALT Alkaline Phosphatase Total Protein Albumin Lipase Urine Color Ltyellow Urine Appearance Slcloudy Urine pH 6.0 Ur Specific [place]issa >= 1.030 H Urine Protein 1+ H Urine Glucose (UA) Negative Urine Ketones Negative Urine Blood 2+ H Urine Nitrite Negative Urine Bilirubin Negative Urine Urobilinogen Negative Ur Leukocyte Esterase Negative Urine RBC <1 Urine WBC 6 Ur Epithelial Cells Moderate Urine Bacteria Rare Urine HCG, Qual Blood Type Antibody Screen Spec Expiration Date 05/17/17 06:23 RBC 4.71 D MCV 86.9 MCHC 34.1 RDW 13.1 D MPV 8.8 D Neutrophils % 51.5 D Lymphocytes % 36.3 D Monocytes % 6.1 Eosinophils % 4.9 H D Basophils % 1.2 D - Medications Given in the ED: ED Medications Discontinued Medications Generic Name Dose Route Start Last Admin Trade Name Freq PRN Reason Stop Dose Admin Al Hydroxide/Mg Hydroxide 30 ml 05/17/17 05:41 05/17/17 07:08 Mylanta Suspension - PO 05/17/17 05:42 30 ml ONCE ONE Administration Sodium Chloride 1,000 mls @ 1,000 mls/hr 05/17/17 05:25 05/17/17 07:08 Normal Saline - IV 05/17/17 06:24 1,000 mls/hr ASDIR STA Administration Famotidine/Sodium Chloride 50 mls @ 100 mls/hr 05/17/17 05:41 05/17/17 07:09 Pepcid 20 Mg Premixed Ivpb - IVPB 05/17/17 06:10 100 mls/hr ONCE ONE Administration Lidocaine HCl 20 ml 05/17/17 05:41 05/17/17 07:09 Xylocaine 2% Viscous Oral - MM 05/17/17 05:42 20 ml ONCE ONE Administration Morphine Sulfate 4 mg 05/17/17 05:25 05/17/17 07:08 Morphine Injection - IVPUSH 05/17/17 05:26 4 mg ONCE ONE Administration Ondansetron HCl 4 mg 05/17/17 05:27 05/17/17 07:08 Zofran Injection IVPUSH 05/17/17 05:28 4 mg ONCE ONE Administration <Vito Baez - Last Filed: 05/17/17 10:50> - LABORATORY CBC & Chemistry Diagram: 05/17/17 06:23 05/17/17 07:18 - RADIOLOGY Radiology Studies Ordered: Category Date Time Status ABDOMEN US -LIMITED [US] Stat Ultrasound 05/17/17 05:25 Ordered <Malachi Nguyen - Last Filed: 05/19/17 07:22> Medical Decision Making - Medical Decision Making 05/17/17 05:49 26 y.o. F with no pmh presenting with abdominal pain. Given hx/pe, concerning for cholecystitis and pancreatitis. Bedside u/s performed-- no evidence of gb wall thickening or pericholecystic fluid. Pending cbc, cmp, lipase, sx control, ua, ucx, upreg, coags, ruq us (official) Care taken over by Dr. Baez <Malachi Nguyen - Last Filed: 05/19/17 07:22> *DC/Admit/Observation/Transfer - Discharge Dispostion Admit: No <Vito Baez - Last Filed: 05/17/17 10:50> <Malachi Nguyen - Last Filed: 05/19/17 07:22> Diagnosis at time of Disposition: Steatohepatitis Abdominal pain Qualifiers: Abdominal location: right upper quadrant Qualified Code(s): R10.11 - Right upper quadrant pain - Discharge Dispostion Disposition: HOME - Prescriptions Prescriptions: Mag Hydrox/Al Hydrox/Simeth [Maalox Advanced Suspension] 20 ml PO BID PRN #1 oral.susp PRN Reason: Indigestion Famotidine [Pepcid] 20 mg PO BID PRN #30 tablet PRN Reason: Indigestion - Referrals Referrals: Damien Bell MD [Staff Physician] - - Patient Instructions Printed Discharge Instructions: Nonalcoholic Fatty Liver Disease Additional Instructions: Our workup today did not show any conditions requiring emergency care. As we discussed, there were some abnormalities in the labs and imaging that you should follow up with a GI doctor for a more complete workup. I have provided you with a referral to Dr. Damien Bell. You should call his office and make an appointment for this week. Mention that you were seen in the emergency department and they should be able to get you an earlier appointment. I have send prescriptions to your pharmacy that may help with the indigestion, For the pain you can take ibuprofen and should avoid any medications that contain Tylenol or acetaminophen. If your symptoms get worse or you develop any new or concerning symptoms, you should return to the emergency department.
[2017-05-17] MEDS ORDERED: LIDOCAINE VISCOUS 2% ORAL/TOP 20 ML UNIT-DOSE CUP ONE (06:28)
[2017-05-17] MEDS ORDERED: MAG HYDROX/AL HYDROX/SIMETH 30 ML UNIT-DOSE CUP ONE (06:29)
[2017-05-17] MEDS ORDERED: morphine CARPU-JECT 10 MG/1 ML DISP.SYRIN ONE (06:29)
[2017-05-17] MEDS ORDERED: ONDANSETRON 4 MG/2 ML VIAL ONE (06:29)
[2017-05-17 06:36] LABS: BASOPHIL 1.2 % (0-2.0); EOSINOPHIL 4.9 % (0-4.5); MCH 29.7 pg (25.7-33.7); MCHC 34.1 g/dl (32.0-36.0); MEAN CELL VOLUME 86.9 fl (80-96); MEAN PLT VOLUME 8.8 fl (7.5-11.1); NEUTROPHILS 51.5 % (42.8-82.8); PLATELET COUNT 336 K/MM3 (134-434); RDW 13.1 % (11.6-15.6); WHITE BLOOD COUNT 10.4 K/mm3 (4.0-10.0)
[2017-05-17 06:54] LABS: URINE APPEARANCE SLCLOUDY; URINE BILIRUBIN NEGATIVE (NEGATIVE); URINE BLOOD 2+ (NEGATIVE); URINE COLOR LTYELLOW; URINE GLUCOSE (UA) NEGATIVE (NEGATIVE); URINE KETONE NEGATIVE (NEGATIVE); URINE NITRITE NEGATIVE (NEGATIVE); URINE UROBILINOGEN NEGATIVE mg/dL (0.2-1.0)
--- NOTE | 2017-05-17 07:07 | PDOC ---
*Physical Exam - Vital Signs Last Vital Signs Temp Pulse Resp BP Pulse Ox 97.3 F L 69 14 132/97 100 05/17/17 05:18 05/17/17 05:18 05/17/17 05:18 05/17/17 05:18 05/17/17 05:18 05/17/17 07:13 - Physical Exam Comments: 05/17/17 07:13 GENERAL: Nourished, Appropriately dressed, AAOx3, Obese, NAD HEAD: NCAT EYES: PERRLA, EOMI, injected conjunctiva, sclera anicteric ENT: hearing grossly normal, nares patent, no congestion NECK: Supple, Normal ROM, no LAD, JVD, or masses RESP: Speaking in full sentences, Symmetrical chest expansion, no respiratory distress, lungs CTAB HEART: RRR, normal S1-S2, no MRG ABDOMEN: Soft, ttp RUQ>epigastric>LUQ, pain radiating R to L on palpation of RUQ , no guarding, no rebound, non-distended. MUSCULOSKELETAL: no CVA Tenderness EXTREMITIES: Normal inspection, Normal ROM NEUROLOGICAL: CN II-XII grossly intact. Normal speech, normal gait, no focal sensorimotor deficits SKIN: Warm, Dry, normal turgor, no rashes or lesions noted. ED Treatment Course - LABORATORY CBC & Chemistry Diagram: 05/17/17 06:23 05/17/17 07:18 - ADDITIONAL ORDERS Additional order review: Laboratory Results 05/17/17 05/17/17 05/17/17 06:23 06:23 06:23 PT with INR Cancelled INR Cancelled PTT (Actin FS) Cancelled Sodium Potassium Chloride Carbon Dioxide Anion Gap BUN Creatinine Creat Clearance w eGFR Random Glucose Calcium Total Bilirubin AST ALT Alkaline Phosphatase Total Protein Albumin Lipase Urine HCG, Qual Negative Blood Type Cancelled Antibody Screen Cancelled Spec Expiration Date Cancelled 05/17/17 06:23 PT with INR INR PTT (Actin FS) Sodium Cancelled Potassium Cancelled Chloride Cancelled Carbon Dioxide Cancelled Anion Gap Cancelled BUN Cancelled Creatinine Cancelled Creat Clearance w eGFR Cancelled Random Glucose Cancelled Calcium Cancelled Total Bilirubin Cancelled AST Cancelled ALT Cancelled Alkaline Phosphatase Cancelled Total Protein Cancelled Albumin Cancelled Lipase Cancelled Urine HCG, Qual Blood Type Antibody Screen Spec Expiration Date 05/17/17 06:23 RBC 4.71 D MCV 86.9 MCHC 34.1 RDW 13.1 D MPV 8.8 D Neutrophils % 51.5 D Lymphocytes % 36.3 D Monocytes % 6.1 Eosinophils % 4.9 H D Basophils % 1.2 D - RADIOLOGY Radiograph Interpretation: 05/17/17 09:17 [id number] US/ABDOMEN US -LIMITED EXAM: Right upper quadrant abdominal sonogram. INDICATION: Right upper quadrant pain. TECHNIQUE: Real-time grayscale and color Doppler sonogram of the right upper quadrant of the abdomen was performed by the technologist. Images are submitted for review. COMPARISON: None. FINDINGS: The liver is large in size and echogenic, measuring approximately 22 cm in length. There is no evidence of cholelithiasis, gallbladder wall thickening or pericholecystic fluid. The common bile duct is mildly dilated, measuring up to 6 mm. The distal common bile duct is obscured by bowel gas. There is no evidence of intrahepatic biliary ductal dilatation. The pancreatic head and tail are obscured by bowel gas and cannot be adequately assessed. Visualized portions of the hepatic bodies grossly unremarkable. The right kidney is normal in size measuring 12.1 cm in length with normal cortical echotexture and no hydronephrosis. The upper abdominal aorta and intrahepatic IVC are unremarkable, where imaged. No free fluid identified in the right upper quadrant. IMPRESSION: 1. No evidence of cholelithiasis or acute cholecystitis. 2. Mildly dilated common bile duct measuring 6 mm. No evidence of intrahepatic biliary ductal dilatation. Please correlate clinically with pancreatic enzymes, LFTs and serum biliary markers. Reevaluation on short-term follow-up sonogram is recommended. 3. Pancreatic head and tail are obscured by bowel gas and cannot be adequately assessed. 4. Hepatic steatosis with large size measuring 22 cm in length which may be related to hepatomegaly and/or Leny's lobe variant. Progress Note - Progress Note Progress Note: Patient is a stable 26 year old female signed out to me by Dr. Malachi Nguyen Patient presented with RUQ pain radiating to back (-) Bedside US Waiting labs and official US Medical Decision Making - Medical Decision Making 05/17/17 07:06 26 year old female with no PMH and RUQ pain Ddx: Cholecystitis, pancreatitis, nephrolithiasis, ectopic , hepatitis , GERD Review labs and imaging 05/17/17 07:07 CBC WBC 10.4 K/mm3 (4.0-10.0) H 05/17/17 06:23 RBC 4.71 M/mm3 (3.60-5.2) D 05/17/17 06:23 Hgb 14.0 GM/dL (10.7-15.3) D 05/17/17 06:23 Hct 40.9 % (32.4-45.2) D 05/17/17 06:23 MCV 86.9 fl (80-96) 05/17/17 06:23 MCH 29.7 pg (25.7-33.7) 05/17/17 06:23 MCHC 34.1 g/dl (32.0-36.0) 05/17/17 06:23 RDW 13.1 % (11.6-15.6) D 05/17/17 06:23 Plt Count 336 K/MM3 (134-434) D 05/17/17 06:23 MPV 8.8 fl (7.5-11.1) D 05/17/17 06:23 Neutrophils % 51.5 % (42.8-82.8) D 05/17/17 06:23 Lymphocytes % 36.3 % (8-40) D 05/17/17 06:23 Monocytes % 6.1 % (3.8-10.2) 05/17/17 06:23 Eosinophils % 4.9 % (0-4.5) H D 05/17/17 06:23 Basophils % 1.2 % (0-2.0) D 05/17/17 06:23 Reviewed and non concerning 05/17/17 07:37 Urine Test Results Urine Color Ltyellow 05/17/17 06:23 Urine Appearance Slcloudy 05/17/17 06:23 Urine pH 6.0 (5.0-8.0) 05/17/17 06:23 Urine Protein 1+ (NEGATIVE) H 05/17/17 06:23 Urine Glucose (UA) Negative (NEGATIVE) 05/17/17 06:23 Urine Ketones Negative (NEGATIVE) 05/17/17 06:23 Urine Blood 2+ (NEGATIVE) H 05/17/17 06:23 Urine Nitrite Negative (NEGATIVE) 05/17/17 06:23 Urine Bilirubin Negative (NEGATIVE) 05/17/17 06:23 Urine RBC <1 /hpf (0-3) 05/17/17 06:23 Urine WBC 6 /hpf (3-5) 05/17/17 06:23 Ur Epithelial Cells Moderate /hpf (FEW) 05/17/17 06:23 Urine Bacteria Rare /hpf (NONE SEEN) 05/17/17 06:23 (+) blood w/o RBC, more consistent for rhabdo/muscle than nephrolithiasis (-) 05/17/17 09:06 CMP Sodium 139 mmol/L (136-145) 05/17/17 07:18 Potassium 3.8 mmol/L (3.5-5.1) 05/17/17 07:18 Chloride 106 mmol/L (98-107) 05/17/17 07:18 Carbon Dioxide 25 mmol/L (21-32) 05/17/17 07:18 Anion Gap 8 (8-16) 05/17/17 07:18 BUN 12 mg/dL (7-18) 05/17/17 07:18 Creatinine 0.6 mg/dL (0.55-1.02) 05/17/17 07:18 Creat Clearance w eGFR > 60 (>60) 05/17/17 07:18 Random Glucose 104 mg/dL (74-106) D 05/17/17 07:18 Calcium 8.9 mg/dL (8.5-10.1) 05/17/17 07:18 Total Bilirubin 0.6 mg/dL (0.2-1.0) D 05/17/17 07:18 AST 62 U/L (15-37) H D 05/17/17 07:18 ALT 123 U/L (12-78) H D 05/17/17 07:18 Alkaline Phosphatase 83 U/L (45-117) D 05/17/17 07:18 Total Protein 7.6 g/dl (6.4-8.2) D 05/17/17 07:18 Albumin 3.7 g/dl (3.4-5.0) D 05/17/17 07:18 Lipase 117 U/L (73-393) 05/17/17 07:18 Laboratory Tests 05/17/17 07:18 PT with INR 12.40 H INR 1.13 PTT (Actin FS) 32.3 Elevated liver enzymes and mild increase in PT concerning for hepatitis Lipase wnl 05/17/17 09:18 US shows dilitation of CBD, 6mm No evidence of cholelithiasis or acute cholecystitis Hepatomegaly with steatosis 05/17/17 10:27 Discussed with patient the need for GI followup, importance of improving diet and exercise Informed her that I would be providing her with a GI referral and she needed to make an early appointment She expressed her understanding and agreement with the plan and information provided. *DC/Admit/Observation/Transfer Diagnosis at time of Disposition: Steatohepatitis Abdominal pain Qualifiers: Abdominal location: right upper quadrant Qualified Code(s): R10.11 - Right upper quadrant pain - Discharge Dispostion Disposition: HOME Admit: No - Prescriptions Prescriptions: Mag Hydrox/Al Hydrox/Simeth [Maalox Advanced Suspension] 20 ml PO BID PRN #1 oral.susp PRN Reason: Indigestion Famotidine [Pepcid] 20 mg PO BID PRN #30 tablet PRN Reason: Indigestion - Referrals Referrals: Damien Bell MD [Staff Physician] - - Patient Instructions Printed Discharge Instructions: Nonalcoholic Fatty Liver Disease Additional Instructions: Our workup today did not show any conditions requiring emergency care. As we discussed, there were some abnormalities in the labs and imaging that you should follow up with a GI doctor for a more complete workup. I have provided you with a referral to Dr. Damien Bell. You should call his office and make an appointment for this week. Mention that you were seen in the emergency department and they should be able to get you an earlier appointment. I have send prescriptions to your pharmacy that may help with the indigestion, For the pain you can take ibuprofen and should avoid any medications that contain Tylenol or acetaminophen. If your symptoms get worse or you develop any new or concerning symptoms, you should return to the emergency department.
[2017-05-17 07:11] LABS: URINE PROTEIN 1+ (NEGATIVE)
[2017-05-17 07:16] LABS: URINE BACTERIA RARE /hpf (NONE SEEN); URINE RBC <1 /hpf (0-3); URINE WBC 6 /hpf (3-5)
[2017-05-17 07:59] LABS: ALBUMIN 3.7 g/dl (3.4-5.0); ALK PHOS 83 U/L (45-117); ANION GAP 8 (8-16); BILIRUBIN,TOTAL 0.6 mg/dL (0.2-1.0); CALCIUM 8.9 mg/dL (8.5-10.1); CO2 25 mmol/L (21-32); CREATININE 0.6 mg/dL (0.55-1.02); GLUCOSE,RANDOM 104 mg/dL (74-106); INR 1.13 (0.82-1.09); PROTHROMBIN TIME (PATIENT) 12.4 SEC (9.98-11.88); SGOT/AST 62 U/L (15-37); SGPT/ALT 123 U/L (12-78); TOT PROT 7.6 g/dl (6.4-8.2)
[2017-05-17 08:02] LABS: ACTIVATED PTT 32.3 SECONDS (26.9-34.4)
[2017-05-17 09:21] LABS: URINE LEUK ESTERASE Negative (NEGATIVE)
[2017-05-17 10:06] VITALS: BP 129/85; PULSE 76; TEMP 97.9
== END 2017-05-17 11:18 | disposition home or self-care (01) ==
LOC: JER 04:57
PROC: 3E033GC Introduction of Other Therapeutic Substance into Peripheral Vein, Percutaneous Approach (ICD-10-PCS; principal; 2017-05-17)
PROC: 3E033NZ Introduction of Analgesics, Hypnotics, Sedatives into Peripheral Vein, Percutaneous Approach (ICD-10-PCS; 2017-05-17)
PROC: 3E0337Z Introduction of Electrolytic and Water Balance Substance into Peripheral Vein, Percutaneous Approach (ICD-10-PCS; 2017-05-17)
DX: K75.81 Nonalcoholic steatohepatitis (NASH) (principal); R10.11 Right upper quadrant pain
CPT/HCPCS: 36415; 76705-TC; 80053; 81003; 81015; 83690; 84703; 85025; 85610; 85730; 87086; 99282-25

== ENCOUNTER 2017-05-26 07:15 | Day surgery (SDC) | payer OTHER ==
[2017-05-25 11:59] VITALS: BMI 38.0
[2017-05-26] MEDS ORDERED: PROPOFOL 20 ML ONE ×3 (07:55)
[2017-05-26] MEDS ORDERED: LIDOCAINE HCL/PF 2% SDV 5ML VIAL ONE (07:55)
[2017-05-26 08:23] VITALS: TEMP 97.8
--- NOTE | 2017-05-26 08:37 | PROC ---
Endoscopy Procedure Endoscopy procedure completed. Please see scanned procedure report.
[2017-05-26 09:15] VITALS: BP 138/90; PULSE 64
--- NOTE | 2017-05-27 15:14 | PATH ---
Surgical Pathology Report Patient Name: SIMONE URBAN [facility]. Rec. #: [id number] /Age/Gender: 1990 (Age: 26) / F Account: [id number] Location: [facility]-ENDOSCOPY Taken: 05/26/2017 Received: 05/26/2017 Reported: 05/27/2017 Physicians: Damien Bell M.D. Specimen(s) Received A: BX DUODENUM B: BX ANTRUM AND BODY C: BX GE JUNCTION Clinical History Abdominal pain Gastric ulcer, reflux Final Diagnosis A. DUODENUM, SECOND PORTION, BIOPSY: DUODENAL MUCOSA WITH NO PATHOLOGIC CHANGES. NO HISTOLOGIC EVIDENCE OF GLUTEN SENSITIVE ENTEROPATHY (CELIAC SPRUE) IDENTIFIED. B. STOMACH, ANTRUM AND BODY, BIOPSY: GASTRIC ANTRAL MUCOSA WITH SUPERFICIAL ULCERATION AND REACTIVE, AND GASTRIC FUNDIC MUCOSA WITH NO PATHOLOGIC CHANGES. IMMUNOSTAIN FOR H. PYLORI IS NEGATIVE. C. GE JUNCTION, BIOPSY: SQUAMOUS AND GASTRIC MUCOSA WITH CHRONIC INFLAMMATION AND PAPILLOMATOSIS SUGGESTIVE OF REFLUX ESOPHAGITIS. FOCAL ULCERATION IS PRESENT. NO INTESTINAL METAPLASIA IDENTIFIED (NO SCHERER'S IDENTIFIED). FUNGAL STAIN (PAS) IS NEGATIVE. Electronically Signed Alejandro Barrera M.D. Gross Description A. Received in formalin, labeled "biopsy second portion of duodenum" are 2 flores, irregular portions of soft tissue measuring 0.2 and 0.3 cm. in greatest dimension. The specimens are submitted in toto in one cassette. B. Received in formalin, labeled "biopsy antrum and body" are 3 flores, irregular portions of soft tissue ranging from 0.3-0.4 cm. in greatest dimension. The specimens are submitted in toto in one cassette. C. Received in formalin, labeled "biopsy GE junction" are 3 flores, irregular portions of soft tissue ranging from 0.1-0.5 cm. in greatest dimension. The specimens are submitted in toto in one cassette. 05/26/2017 saudi05/26/2017
== END 2017-05-26 09:26 | disposition home or self-care (01) ==
LOC: JASU-ENDO 07:15
PROVIDERS: ATTEND Internal Medicine Gastroenterology
PROC: 0DB68ZX Excision of Stomach, Via Natural or Artificial Opening Endoscopic, Diagnostic (ICD-10-PCS; 2017-05-26)
PROC: 0DB48ZX Excision of Esophagogastric Junction, Via Natural or Artificial Opening Endoscopic, Diagnostic (ICD-10-PCS; 2017-05-26)
PROC: 0DB98ZX Excision of Duodenum, Via Natural or Artificial Opening Endoscopic, Diagnostic (ICD-10-PCS; principal; 2017-05-26 08:00)
DX: K20.9 Esophagitis, unspecified (principal); K25.9 Gastric ulcer, unspecified as acute or chronic, without hemorrhage or perforation
CPT/HCPCS: 84703; 88305-TC; 88312-TC; 88342-TC

== ENCOUNTER 2017-09-26 15:32 | Emergency (ER) | payer OTHER ==
--- NOTE | 2017-09-26 16:15 | PDOC ---
Rapid Medical Evaluation Time Seen by Provider: 09/26/17 16:12 Medical Evaluation: Allergies Allergy/AdvReac Type Severity Reaction Status Date / Time No Known Allergies Allergy Verified 05/17/17 05:18 09/26/17 16:12 I have performed a brief in-person evaluation of this patient. The patient presents with a chief complaint of: MIX, fever (Tmax 102.8F), body aches since Tuesday, denies URI symptoms, denies N/V/D Pertinent physical exam findings: well appearing, lungs ctab, HR 103 I have ordered the following: nothing The patient will proceed to the ED for further evaluation. Discharge Disposition - Diagnosis Fever - Referrals - Patient Instructions - Post Discharge Activity
[2017-09-26 16:19] VITALS: BP 137/67; PULSE 103; TEMP 98; BMI 36.6
--- NOTE | 2017-09-26 16:32 | PDOC ---
History of Present Illness - General Chief Complaint: Cold Symptoms Stated Complaint: FEVER Time Seen by Provider: 09/26/17 16:12 History Source: Patient Exam Limitations: No Limitations - History of Present Illness Initial Comments: CHIEF COMPLAINT: 26 y/o afebrile female c/o fever, body aches and headache x 2 days. HISTORY OF PRESENT ILLNESS: The patient states her temp almost reached 103 at home. She took 325mg of tylenol at noon today for the fever. She denies cough , runny nose, congestion, n/v/d, CP, SOB, abd pain, hematuria, dysuria. Past History - Past Medical History Allergies/Adverse Reactions: Allergies Allergy/AdvReac Type Severity Reaction Status Date / Time No Known Allergies Allergy Verified 05/17/17 05:18 Home Medications: Ambulatory Orders NK [No Known Home Medication] 09/26/17 Anemia: No Asthma: No Cancer: No Cardiac Disorders: No CVA: No COPD: No CHF: No Dementia: No Diabetes: No GI Disorders: No Disorders: No HTN: No Hypercholesterolemia: No Liver Disease: No Seizures: No Thyroid Disease: No - Surgical History Orthopedic Surgery: No - Reproductive History (#): 2 Para: 1 - Immunization History Td Vaccination: Yes TDAP Vaccination: No Immunization Up to Date: Yes - Suicide/Smoking/Psychosocial Hx Smoking Status: No Smoking History: Never smoked Years of Tobacco Use: 0 Have you smoked in the past 12 months: No Number of Cigarettes Smoked Daily: 0 Cigars Per Day: 0 Information on smoking cessation initiated: No Hx Alcohol Use: No Drug/Substance Use Hx: No Substance Use Type: None Hx Substance Use Treatment: No Review of Systems - Review of Systems Able to Perform ROS?: Yes Constitutional: Yes: Chills, Fever, Other (body aches) HEENTM: No: Ear Pain, Nose Pain, Nose Congestion, Throat Pain, Throat Swelling, Difficulty Swallowing Respiratory: No: Symptoms reported Cardiac (ROS): No: Symptoms Reported ABD/GI: No: Symptoms Reported : No: Symptoms Reported Neurological: Yes: Headache *Physical Exam - Vital Signs Last Vital Signs Temp Pulse Resp BP Pulse Ox 98 F 103 H 20 137/67 100 09/26/17 16:16 09/26/17 16:16 09/26/17 16:16 09/26/17 16:16 09/26/17 16:16 - Physical Exam Comments: Non toxic but ill appearing obese female in NAD or obvious discomfort. General Appearance: Yes: Nourished, Appropriately Dressed, Obese. No: Apparent Distress HEENT: positive: EOMI, CHERYL, Normal Voice, TMs Normal, Pharynx Normal. negative : Tonsillar Exudate, Tonsillar Erythema, Nasal Congestion, Rhinorrhea Neck: negative: Lymphadenopathy (R), Lymphadenopathy (L) Respiratory/Chest: positive: Lungs Clear, Normal Breath Sounds. negative: Respiratory Distress, Wheezing Cardiovascular: positive: Regular Rhythm, Tachycardia Gastrointestinal/Abdominal: positive: Normal Bowel Sounds. negative: Tender, Guarding Medical Decision Making - Medical Decision Making A/P: 26 y/o afebrile, tachycardic female with flu like symptoms. Plan is as follows: 1. hcg/UA 2. IM toradol hcg - negative The patient feels no better after toradol. she admits she feels like she is going to fall down if she gets up and still has a MIX. Will send her to main ER for further work up. *DC/Admit/Observation/Transfer Diagnosis at time of Disposition: Headache, Fever, Body aches - Referrals - Patient Instructions - Post Discharge Activity
[2017-09-26 17:10] LABS: URINE APPEARANCE CLEAR; URINE BILIRUBIN NEGATIVE (NEGATIVE); URINE BLOOD NEGATIVE (NEGATIVE); URINE COLOR YELLOW; URINE GLUCOSE (UA) NEGATIVE (NEGATIVE); URINE KETONE NEGATIVE (NEGATIVE); URINE LEUK ESTERASE TRACE (NEGATIVE); URINE NITRITE NEGATIVE (NEGATIVE); URINE UROBILINOGEN 4.0 E.U/dl mg/dL (0.2-1.0)
[2017-09-26 17:17] LABS: URINE PROTEIN 2+ (NEGATIVE)
[2017-09-26 17:20] LABS: EPI CELLS RARE /HPF (FEW); URINE BACTERIA RARE /hpf (NONE SEEN); URINE MUCUS RARE
[2017-09-26] MEDS ORDERED: KETOROLAC TROMETHAMINE 60 MG/2 ML VIAL IM ONE (17:23)
[2017-09-26] MEDS ORDERED: KETOROLAC TROMETHAMINE 60 MG/2 ML VIAL ONE (17:27)
--- NOTE | 2017-09-26 18:51 | PDOC ---
History of Present Illness - General Chief Complaint: Cold Symptoms Stated Complaint: FEVER Time Seen by Provider: 09/26/17 16:12 History Source: Patient - History of Present Illness Timing/Duration: reports: yesterday Associated Symptoms: reports: fever/chills, headache, muscle aches. denies: chest pain/soreness, cough, earache, facial pain, lightheadedness, nasal congestion, nasal drainage, shortness of breath, sore throat, wheezing Past History - Past Medical History Allergies/Adverse Reactions: Allergies Allergy/AdvReac Type Severity Reaction Status Date / Time No Known Allergies Allergy Verified 05/17/17 05:18 Home Medications: Ambulatory Orders Oseltamivir Phosphate [Tamiflu] 75 mg PO BID #10 capsule 09/26/17 Anemia: No Asthma: No Cancer: No Cardiac Disorders: No CVA: No COPD: No CHF: No Dementia: No Diabetes: No GI Disorders: No Disorders: No HTN: No Hypercholesterolemia: No Liver Disease: No Seizures: No Thyroid Disease: No - Surgical History Orthopedic Surgery: No - Reproductive History (#): 2 Para: 1 - Immunization History Td Vaccination: Yes TDAP Vaccination: No Immunization Up to Date: Yes - Suicide/Smoking/Psychosocial Hx Smoking Status: No Smoking History: Never smoked Years of Tobacco Use: 0 Have you smoked in the past 12 months: No Number of Cigarettes Smoked Daily: 0 Cigars Per Day: 0 Information on smoking cessation initiated: No Hx Alcohol Use: No Drug/Substance Use Hx: No Substance Use Type: None Hx Substance Use Treatment: No Review of Systems - Review of Systems Constitutional: Yes: Chills, Fever, Malaise Respiratory: No: Cough, Shortness of Breath Cardiac (ROS): No: Chest Pain ABD/GI: No: Diarrhea, Nausea, Vomiting *Physical Exam - Vital Signs Last Vital Signs Temp Pulse Resp BP Pulse Ox 98 F 103 H 20 137/67 100 09/26/17 16:16 09/26/17 16:16 09/26/17 16:16 09/26/17 16:16 09/26/17 16:16 - Physical Exam General Appearance: Yes: Appropriately Dressed. No: Apparent Distress HEENT: positive: Normal ENT Inspection, Normal Voice. negative: Scleral Icterus (R), Scleral Icterus (L) Neck: positive: Supple. negative: Lymphadenopathy (R), Lymphadenopathy (L) Respiratory/Chest: positive: Lungs Clear, Normal Breath Sounds. negative: Respiratory Distress Cardiovascular: positive: Regular Rate, S1, S2 Gastrointestinal/Abdominal: positive: Soft. negative: Tender Integumentary: positive: Dry, Warm Neurologic: positive: Fully Oriented, Alert, Normal Mood/Affect ED Treatment Course - ADDITIONAL ORDERS Additional order review: Laboratory Results 09/26/17 09/26/17 17:12 17:12 Urine Color Yellow Urine Appearance Clear Urine pH 6.0 Ur Specific [place] 1.025 Urine Protein 2+ H Urine Glucose (UA) Negative Urine Ketones Negative Urine Blood Negative Urine Nitrite Negative Urine Bilirubin Negative Urine Urobilinogen 4.0 e.u/dl H Ur Leukocyte Esterase Trace Urine WBC (Auto) 11 Urine RBC (Auto) 3 Ur Epithelial Cells Rare Urine Bacteria Rare Urine Mucus Rare Urine HCG, Qual Negative - Medications Given in the ED: ED Medications Discontinued Medications Generic Name Dose Route Start Last Admin Trade Name Freq PRN Reason Stop Dose Admin Ketorolac Tromethamine 60 mg 09/26/17 17:23 09/26/17 17:27 Toradol Injection - IM 09/26/17 17:24 60 mg ONCE ONE Administration Medical Decision Making - Medical Decision Making 09/26/17 18:47 26-year-old female, no significant history here with headache with body aches and fever of 102F 2 days. No cough, sob, abdominal pain, nausea, vomiting or diarrhea. No sick contacts or recent travel. Patient appears uncomfortable in ED with mild tachycardia to 103 that decreased to 90 on my reassessment, afebrile with unremarkable exam otherwise. Suspect influenza, but unable to test in ED secondary to no reagent in facility. Will dc with supportive treatment and Tamiflu. Reasons to return discussed with patient. 09/26/17 18:50 *DC/Admit/Observation/Transfer Diagnosis at time of Disposition: Viral syndrome - Discharge Dispostion Disposition: HOME Condition at time of disposition: Improved - Prescriptions Prescriptions: Oseltamivir Phosphate [Tamiflu] 75 mg PO BID #10 capsule - Referrals - Patient Instructions Additional Instructions: You may have the flu. Rest, drink plenty of fluids, take Tylenol or Motrin for pain and/or fever and take Tamiflu as directed. If symptoms worsen, return to ER - Post Discharge Activity
== END 2017-09-26 20:28 | disposition home or self-care (01) ==
LOC: JERFT 15:32 → JER 15:32
PROC: 3E0233Z Introduction of Anti-inflammatory into Muscle, Percutaneous Approach (ICD-10-PCS; principal; 2017-09-26)
DX: B34.9 Viral infection, unspecified (principal)
CPT/HCPCS: 81003; 81015; 84703; 99281-25

== ENCOUNTER 2018-12-10 13:56 | Emergency (ER) | payer OTHER ==
[2018-12-10 14:18] VITALS: BP 122/73; PULSE 119; TEMP 99.6; BMI 30.2
[2018-12-10] MEDS ORDERED: ACETAMINOPHEN 500 MG TABLET (FP) PO ONE (14:47)
--- NOTE | 2018-12-10 14:54 | PDOC ---
History of Present Illness - General Chief Complaint: Cold Symptoms Stated Complaint: 11 WK PREG / FEVER Time Seen by Provider: 12/10/18 14:19 - History of Present Illness Initial Comments: 12/10/18 14:52 28-year-old 11 week gravid female presents for evaluation of fever bodyaches and cough times one day. She has sick contacts at home with influenza symptoms. Past History - Past Medical History Allergies/Adverse Reactions: Allergies Allergy/AdvReac Type Severity Reaction Status Date / Time No Known Allergies Allergy Verified 04/05/18 16:42 Home Medications: Ambulatory Orders Oxycodone HCl/Acetaminophen [Percocet 5-325 mg Tablet] 1 - 2 tab PO Q4H PRN #10 tablet MDD 4 tabs 04/05/18 Sulfamethoxazole/Trimethoprim [Bactrim Ds Tablet] 1 each PO BID #14 tablet 04/05 Oseltamivir Phosphate [Tamiflu] 75 mg PO BID #10 capsule 12/10/18 Anemia: No Asthma: No Cancer: No Cardiac Disorders: No CVA: No COPD: No CHF: No Dementia: No Diabetes: No GI Disorders: No Disorders: No HTN: No Hypercholesterolemia: No Liver Disease: No Seizures: No Thyroid Disease: No - Surgical History Orthopedic Surgery: No - Reproductive History (#): 2 Para: 1 - Immunization History Td Vaccination: Yes TDAP Vaccination: No Immunization Up to Date: Yes - Suicide/Smoking/Psychosocial Hx Smoking Status: No Smoking History: Never smoked Years of Tobacco Use: 0 Have you smoked in the past 12 months: No Number of Cigarettes Smoked Daily: 0 Cigars Per Day: 0 Information on smoking cessation initiated: No Hx Alcohol Use: No Drug/Substance Use Hx: No Substance Use Type: None Hx Substance Use Treatment: No Review of Systems - Review of Systems Constitutional: Yes: See HPI, Chills, Diaphoresis, Fever, Night Sweats, Weakness HEENTM: Yes: Nose Congestion Respiratory: Yes: Cough *Physical Exam - Vital Signs Last Vital Signs Temp Pulse Resp BP Pulse Ox 99.6 F 119 H 20 122/73 99 12/10/18 14:16 12/10/18 14:16 12/10/18 14:16 12/10/18 14:16 12/10/18 14:16 - Physical Exam Comments: 12/10/18 14:52 HEAD: NC/AT EYES: Conjuntiva clear Ears: Canals and TM's normal NOSE: No d/c THROAT: Moist mucous membrances, oral pharanx clear, uvula midline NECK: Supple without adenopathy CARDIAC: S1 S2 LUNGS: CTA Full and Equal breath sounds ABDOMEN: Soft NT ND MS: Full ROM in all joints without edema NEUROLOGIC: No gross sensory or motor deficits, NVID SKIN: Normal color and temperature no lesions or rashes Medical Decision Making - Medical Decision Making 12/10/18 14:52 Treat for influenza based on and sick contacts at home advised on use of Tylenol only for fever. *DC/Admit/Observation/Transfer Diagnosis at time of Disposition: Influenza - Discharge Dispostion Disposition: HOME Condition at time of disposition: Stable Decision to Admit order: No - Prescriptions Prescriptions: Oseltamivir Phosphate [Tamiflu] 75 mg PO BID #10 capsule - Referrals Referrals: Shawn Crowder MD [Staff Physician] - - Patient Instructions Printed Discharge Instructions: Influenza, DI for Influenza -- Adult Additional Instructions: Only Tylenol for pain. Please take the Tamiflu as directed. Follow-up with her primary care physician in one to 2 days for further evaluation and treatment options. Return to the emergency room for worsening symptoms. - Post Discharge Activity
[2018-12-10] MEDS ORDERED: ACETAMINOPHEN 500 MG TABLET (FP) ONE (15:02)
== END 2018-12-10 15:16 | disposition home or self-care (01) ==
LOC: JERFT 13:56
DX: O26.891 Other specified pregnancy related conditions, first trimester (principal); O98.511 Other viral diseases complicating pregnancy, first trimester; J11.1 Influenza due to unidentified influenza virus with other respiratory manifestations; Z3A.11 11 weeks gestation of pregnancy
CPT/HCPCS: 99281-25

== ENCOUNTER 2018-12-17 15:20 | Emergency (ER) | payer OTHER ==
[2018-12-17 15:31] VITALS: BMI 30.2
--- NOTE | 2018-12-17 15:32 | PDOC ---
History of Present Illness - General Chief Complaint: Pain Stated Complaint: 12 W PREG RASH Time Seen by Provider: 12/17/18 15:29 History Source: Patient Exam Limitations: No Limitations Past History - Travel Traveled outside of the country in the last 30 days: No Close contact w/someone who was outside of country & ill: No - Past Medical History Allergies/Adverse Reactions: Allergies Allergy/AdvReac Type Severity Reaction Status Date / Time No Known Allergies Allergy Verified 12/17/18 15:23 Home Medications: Ambulatory Orders Diphenhydramine HCl [Benadryl -] 25 mg PO Q6H #28 capsule 12/17/18 No122/Iron/Folic Acid [ Multi Tablet] 1 each PO DAILY 12/17/18 Anemia: No Asthma: No Cancer: No Cardiac Disorders: No CVA: No COPD: No CHF: No Dementia: No Diabetes: No GI Disorders: No Disorders: No HTN: No Hypercholesterolemia: No Liver Disease: No Seizures: No Thyroid Disease: No - Surgical History Orthopedic Surgery: No - Reproductive History (#): 2 Para: 1 - Immunization History Td Vaccination: Yes TDAP Vaccination: No Immunization Up to Date: Yes - Suicide/Smoking/Psychosocial Hx Smoking Status: No Smoking History: Never smoked Years of Tobacco Use: 0 Have you smoked in the past 12 months: No Number of Cigarettes Smoked Daily: 0 Cigars Per Day: 0 Hx Alcohol Use: No Drug/Substance Use Hx: No Substance Use Type: None Hx Substance Use Treatment: No Review of Systems - Review of Systems Able to Perform ROS?: Yes Comments:: 12/17/18 18:46 CONSTITUTIONAL: Absent: fever, chills, diaphoresis, generalized weakness, malaise, loss of appetite HEENT: Absent: rhinorrhea, nasal congestion, throat pain, throat swelling, difficulty swallowing, mouth swelling, ear pain, eye pain, visual Changes CARDIOVASCULAR: Absent: chest pain, loss of consciousness, palpitations, irregular heart rate, peripheral edema RESPIRATORY: Absent: cough, shortness of breath, dyspnea with exertion, orthopnea, wheezing, stridor, hemoptysis GASTROINTESTINAL: Absent: abdominal pain, abdominal distension, nausea, vomiting, diarrhea, constipation, melena, hematochezia GENITOURINARY: Absent: vaginal bleeding, dysuria, frequency, urgency, hesitancy, hematuria, flank pain, genital pain MUSCULOSKELETAL: Present: myalgia Absent: arthralgia, joint swelling SKIN: Present: rash Absent: itching, pallor HEMATOLOGIC/IMMUNOLOGIC: Absent: easy bleeding, easy bruising, lymphadenopathy, frequent infections ENDOCRINE: Absent: unexplained weight gain, unexplained weight loss, heat intolerance, cold intolerance NEUROLOGIC: Absent: headache, focal weakness or paresthesias, dizziness, unsteady gait, seizure, mental status changes, bladder or bowel incontinence PSYCHIATRIC: Absent: anxiety, depression, suicidal or homicidal ideation, hallucinations. Is the patient limited [place]ian proficient: No *Physical Exam - Vital Signs Last Vital Signs Temp Pulse Resp BP Pulse Ox 98.1 F 87 19 114/66 99 12/17/18 15:25 12/17/18 15:25 12/17/18 15:25 12/17/18 15:25 12/17/18 15:25 - Physical Exam Comments: 12/17/18 18:47 GENERAL: Well developed, well nourished. Awake and alert. No acute distress. HEENT: Normocephalic, atraumatic. PERRLA, EOMI. No conjunctival pallor. Sclera are non- icteric. Moist mucous membranes. Oropharynx is clear. NECK: Supple. Full ROM. No JVD. Carotid pulses 2+ and symmetric, without bruits. No thyromegaly. No lymphadenopathy. CARDIOVASCULAR: Regular rate and rhythm. No murmurs, rubs, or gallops. Distal pulses are 2+ and symmetric. PULMONARY: No evidence of respiratory distress. Lungs clear to auscultation bilaterally. No wheezing, rales or rhonchi. ABDOMINAL: Soft. Non-tender. Non-distended. No rebound or guarding. No organomegaly. Normoactive bowel sounds. MUSCULOSKELETAL TTP of the lower paraspinous muscles at L4 b/l with palpable knot. No midline tenderness. (-) straight leg raises b/l. Normal range of motion at all joints. No bony deformities or tenderness. No CVA tenderness. EXTREMITIES: No cyanosis. No clubbing. No edema. No calf tenderness. SKIN: Erythematous, blanching macular rash to arms and legs b/l. Warm and dry. Normal capillary refill. No jaundice. NEUROLOGICAL: Alert, awake, appropriate. Cranial nerves 2-12 intact. No deficits to light touch and temperature in face, upper extremities and lower extremities. No motor deficits in the in face, upper extremities and lower extremities. Normoreflexic in the upper and lower extremities. Normal speech. Toes are down- going bilaterally. Gait is normal without ataxia. PSYCHIATRIC: Cooperative. Good eye contact. Appropriate mood and affect. ED Treatment Course - LABORATORY CBC & Chemistry Diagram: 12/17/18 16:20 12/17/18 16:20 Medical Decision Making - Medical Decision Making 12/17/18 18:50 The patient is a 28-year-old female, currently 12 weeks , LMP 09/22, who presents to the ER for lower back pain and rash to her arms and legs since Tuesday. She states she was recently taken an antibiotic for a urinary tract infection and finished the medication on Tuesday. She is unsure which antibiotic she took. She states the rashe is very Itchy. She is not taking medication her back pain. Denies vaginal bleeding, fevers, chills, nausea, vomiting, difficulty breathing and chest pain. A/P: Rash, low back pain On exam patient with macular blanching erythematous rash over legs and arms bilaterally. Consistent with possible drug reaction. Low back pain appears muscular in nature. Palpable spasm swelled over the paraspinous muscles at the L4 bilaterally. Basic labs obtained to rule out other causes for rash. No leukocytosis, bili WNL Urine is without infection at this time. Transvaginal ultrasound ordered to evaluate the baby. Currently pending results. We'll treat the rash with Benadryl. Anticipate discharge after ultrasound. Sign out given to the night team *DC/Admit/Observation/Transfer Diagnosis at time of Disposition: Allergic reaction caused by a drug Qualifiers: Encounter type: initial encounter Qualified Code(s): T78.40XA - Allergy, unspecified, initial encounter - Discharge Dispostion Disposition: HOME Condition at time of disposition: Stable - Prescriptions Prescriptions: Diphenhydramine HCl [Benadryl -] 25 mg PO Q6H #28 capsule - Referrals - Patient Instructions Printed Discharge Instructions: DI for Adverse Drug Reaction -- Allergic Additional Instructions: Your Discharge Instructions: You must call primary care physician within 24 hours to arrange follow-up. Return to the Emergency Department with any new, persistent or worsening symptoms, for fever, chills, SOB, dizziness or any other concerning changes that may occur. - Post Discharge Activity
[2018-12-17] MEDS ORDERED: ACETAMINOPHEN 325 MG TABLET (FP) PO ONE (16:12)
[2018-12-17] MEDS ORDERED: ACETAMINOPHEN 325 MG TABLET (FP) ONE (16:30)
[2018-12-17 16:50] LABS: BASO % 0.2 % (0-2.0); HEMATOCRIT 32.4 % (32.4-45.2); HEMOGLOBIN 10.2 GM/dL (10.7-15.3); LYMPH % 12.3 % (8-40); MCH 24.2 pg (25.7-33.7); MCHC 31.5 g/dl (32.0-36.0); MEAN CELL VOLUME 76.8 fl (80-96); MEAN PLT VOLUME 7.3 fl (7.5-11.1); MONO % 4.4 % (3.8-10.2); NEUT % 80.1 % (42.8-82.8); PLATELET COUNT 367 K/MM3 (134-434); RBC 4.21 M/mm3 (3.60-5.2); RDW 19.1 % (11.6-15.6); WHITE BLOOD COUNT 8.5 K/mm3 (4.0-10.0)
[2018-12-17 16:53] LABS: PH,URINE 6.5 (5.0-8.0); URINE APPEARANCE CLEAR; URINE BILIRUBIN NEGATIVE (NEGATIVE); URINE COLOR YELLOW; URINE GLUCOSE (UA) NEGATIVE (NEGATIVE); URINE KETONE NEGATIVE (NEGATIVE); URINE LEUK ESTERASE NEGATIVE (NEGATIVE); URINE NITRITE NEGATIVE (NEGATIVE); URINE PROTEIN NEGATIVE (NEGATIVE)
[2018-12-17 17:03] LABS: ALBUMIN 3.1 g/dl (3.4-5.0); BILIRUBIN,TOTAL 0.2 mg/dL (0.2-1); CALCIUM 8.6 mg/dL (8.5-10.1); CREATININE 0.4 mg/dL (0.55-1.3); POTASSIUM 3.5 mmol/L (3.5-5.1); TOT PROT 6.9 g/dl (6.4-8.2)
[2018-12-17 18:56] VITALS: BP 104/62; PULSE 77; TEMP 98.2
--- NOTE | 2018-12-17 19:49 | PDOC ---
*Physical Exam - Vital Signs Last Vital Signs Temp Pulse Resp BP Pulse Ox 98.2 F 77 20 104/62 100 12/17/18 18:54 12/17/18 18:54 12/17/18 18:54 12/17/18 18:54 12/17/18 18:54 ED Treatment Course - LABORATORY CBC & Chemistry Diagram: 12/17/18 16:20 12/17/18 16:20 - ADDITIONAL ORDERS Additional order review: Laboratory Results 12/17/18 12/17/18 12/17/18 16:20 16:20 16:20 Sodium 136 Potassium 3.5 Chloride 106 Carbon Dioxide 23 Anion Gap 7 L BUN 7 Creatinine 0.4 L Est GFR (CKD-EPI)AfAm 166.61 Est GFR (CKD-EPI)NonAf 143.75 Random Glucose 96 Calcium 8.6 Total Bilirubin 0.2 AST 25 ALT 53 Alkaline Phosphatase 72 Total Protein 6.9 Albumin 3.1 L Beta HCG, Quant 64407.0 Urine Color Yellow Urine Appearance Clear Urine pH 6.5 Ur Specific [place] 1.021 Urine Protein Negative Urine Glucose (UA) Negative Urine Ketones Negative Urine Blood Negative Urine Nitrite Negative Urine Bilirubin Negative Urine Urobilinogen 1.0 Ur Leukocyte Esterase Negative 12/17/18 16:20 RBC 4.21 MCV 76.8 L MCHC 31.5 L RDW 19.1 H MPV 7.3 L D Neutrophils % 80.1 D Lymphocytes % 12.3 D Monocytes % 4.4 Eosinophils % 3.0 Basophils % 0.2 - Medications Given in the ED: ED Medications Discontinued Medications Generic Name Dose Route Start Last Admin Trade Name Freq PRN Reason Stop Dose Admin Acetaminophen 650 mg 12/17/18 16:12 12/17/18 16:31 Tylenol - PO 12/17/18 16:13 650 mg ONCE ONE Administration Medical Decision Making - Medical Decision Making 12/17/18 19:48 Patient endorsed to me to follow ultrasound and disposition. Patient seen and evaluated has no acute issues wanting to eat. 12/17/18 20:08 Ultrasound reviewed notes. Will give Benadryl 50 mg by mouth and discharged. Patient Full Name: RAJNI NICHOLS Patient Accession No: [id number] Patient : 1990 Reason for Exam: back pain Referring Physician: AGNES SOTELO Patient Name: SIMONE URBAN THIS IS A PRELIMINARY REPORT FROM IMAGING CUSTOMER SUPPORT COORDINATOR DATE OF SERVICE: 2018-12-17 17:50:37 IMAGES: 46 EXAM: TRANSVAGINAL US PREG HISTORY: with back pain COMPARISON: None. FINDINGS: There is a single live intrauterine gestation with heart rate of 161 bpm Approximate age of 12 weeks, 4 days by composite ultrasound with concordant biometrics Estimated weight 56.5 g movement noted by the radiation therapy technologist in real-time Amniotic fluid volume is subjectively adequate The cervix is closed and measures 4.6 cm in length Normal ovaries without evidence of torsion No adnexal masses visualized No free fluid THIS DOCUMENT HAS BEEN ELECTRONICALLY SIGNED Silas Baer MD 12/17/2018 20:55 EST M.D. Please call Imaging Facility Security Officer [phone] ([phone]) with questions. INTERPRETING RADIOLOGIST: Silas Baer MD Electronically Signed: December 17, 2018 08:56PM EDT I discussed the physical exam findings, ancillary test results and final diagnoses with the patient. I answered all of the patient's questions. The patient was satisfied with the care received and felt comfortable with the discharge plan and treatment plan. The Patient agrees to follow up with the primary care physician within 24-72 hours. *DC/Admit/Observation/Transfer Diagnosis at time of Disposition: Allergic reaction caused by a drug Qualifiers: Encounter type: initial encounter Qualified Code(s): T78.40XA - Allergy, unspecified, initial encounter - Discharge Dispostion Disposition: HOME Condition at time of disposition: Stable - Prescriptions Prescriptions: Diphenhydramine HCl [Benadryl -] 25 mg PO Q6H #28 capsule - Referrals - Patient Instructions Printed Discharge Instructions: DI for Adverse Drug Reaction -- Allergic Additional Instructions: Your Discharge Instructions: You must call primary care physician within 24 hours to arrange follow-up. Return to the Emergency Department with any new, persistent or worsening symptoms, for fever, chills, SOB, dizziness or any other concerning changes that may occur. - Post Discharge Activity
[2018-12-17] MEDS ORDERED: diphenhydrAMINE HCL 25 MG CAPSULE (FP) PO ONE ×2 (20:10→20:14)
== END 2018-12-17 20:23 | disposition home or self-care (01) ==
LOC: JER 15:20
DX: T78.40XA Allergy, unspecified, initial encounter (principal); O26.891 Other specified pregnancy related conditions, first trimester; Z3A.12 12 weeks gestation of pregnancy
CPT/HCPCS: 36415; 76817-TC; 80053; 81003; 84702; 85025; 87086; 99282-25

== ENCOUNTER 2019-06-04 15:25 | Inpatient (IN) | payer OTHER ==
[2019-06-04 16:25] LABS: BASO % 0.5 % (0-2.0); EOS % 1.3 % (0-4.5); HEMATOCRIT 36.5 % (32.4-45.2); HEMOGLOBIN 12.4 GM/dL (10.7-15.3); MCH 30.7 pg (25.7-33.7); MCHC 34.1 g/dl (32.0-36.0); MEAN PLT VOLUME 8.8 fl (7.5-11.1); MONO % 6.2 % (3.8-10.2); PLATELET COUNT 245 K/MM3 (134-434); RBC 4.05 M/mm3 (3.60-5.2); RDW 15.1 % (11.6-15.6); WHITE BLOOD COUNT 9.4 K/mm3 (4.0-10.0)
[2019-06-04 16:39] LABS: INR 0.97 (0.83-1.09); PROTHROMBIN TIME (PATIENT) 11.5 SEC (9.7-13.0)
[2019-06-04 16:42] LABS: ACTIVATED PTT 28.2 SECONDS (25.2-36.5)
[2019-06-04 16:49] LABS: CALCIUM 8.7 mg/dL (8.5-10.1); CREATININE 0.6 mg/dL (0.55-1.3); POTASSIUM 3.9 mmol/L (3.5-5.1)
[2019-06-04 16:53] VITALS: BMI 40.4
[2019-06-04] MEDS ORDERED: CITRIC ACID/SODIUM CITRATE 30 ML UNIT-DOSE CUP PO ONE (17:25)
[2019-06-04] MEDS ORDERED: ELECTROLYTE-148 SOLN 1,000 ML IV SCH (17:30)
--- NOTE | 2019-06-04 17:31 | HP ---
Past Medical History - Primary Care Physician PCP:: Les Chen - Admission Chief Complaint: Sent from [facility] office for borderline oligohydramnios and severe IUGR History of Present Illness: Patient is asymptomatic but reports feeling wet for 3 days. 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 No: Ascites, Cancer, Crohn's Disease, Diverticulitis, Diverticulosis, Esophageal Varices, Gastritis, GERD, GI Bleed, Hemorrhoids, Hiatal Hernia, Inflamatory Bowel Disease, Irritable Bowel Disease, Pancreatitis, Peptic Ulcer Disease, Ulcerative Colitis, Other Hepatobiliary: No: Cirrhosis, Cholelithiasis, Cholecystitis, Choledocholithiasis , Hepatitis A, Hepatitis B, Hepatitis C, Other Renal/: No: Renal Failure, Renal Inusuff, BPH, Cancer, Hematuria, Hemodialysis , Neurogenic Bladder, Renal Calculi, UTI, Other Reproductive: No: Ectopic , Endometriosis, Fibroids, PID, Polycystic Ovary Syndrome, Postmenopausal, Other ...: 3 ...Para: 2 ...Term: 2 ...: 0 ...Spon : 0 ...Induced : 0 ...Multiple Gestation: 0 ...LMP: 09/25/18 ... Weeks Gestation by Dates: 36 ...EDC by Dates: 07/02/19 ...EDC by Sono: 07/02/19 Heme/Onc: Yes: Anemia. No: B12 Deficiency, Bleeding Disorder, Cancer, Current Chemotherapy, Current Radiation Therapy, Hemochromatosis, Hypercoaguable State, Myeloproliferative Synd, Sickle Cell Disease, Sickle Cell Trait, Thrombocytopenia, Other Infectious Disease: No: AIDS, C-Diff, Herpes Zoster, HIV, MRSA, STD's, Tuberculosis, VREF, Other Psych: No: Addictions, Anxiety, Bipolar, Depression, Panic, Psychosis, Schizophrenia, Other Musculoskeletal: No: Bursitis, Chronic low back pain, Hemiparesis, Hemiplegia, Osteoarthritis, Paraplegia, Other Rheumatology: No: Fibromyalgia, Gout, Lupus, Rheumatoid Arthritis, Sarcoidosis, Vasculitis, Other ENT: No: Allergic Rhinitis, Sinusitis, Other Endocrine: No: Naif's Disease, Mousie's Disease, Diabetes Insipidus, Diabetes Mellitus, Hyperparathyroidism, Hyperthyroidism, Hypothyroidism, Osteopenia, SIADH, Other Dermatology: No: Basal Cell, Cellulitis, Eczema, Melanoma, Psoriasis, Squamous Cell, Other - Past Surgical History Past Surgical History: Yes: (07/2014) Hx Myomectomy: No Hx Transabdominal Cerclage: No - Smoking History Smoking history: Never smoked Have you smoked in the past 12 months: No Aproximately how many cigarettes per day: 0 - Alcohol/Substance Use Hx Alcohol Use: No History of Substance Use: reports: None - Social History History of Recent Travel: No Home Medications - Allergies Allergies/Adverse Reactions: Allergies Allergy/AdvReac Type Severity Reaction Status Date / Time No Known Allergies Allergy Verified 04/26/19 13:05 - Home Medications Home Medications: Ambulatory Orders No122/Iron/Folic Acid [ Multi Tablet] 1 each PO DAILY 12/17/18 Aspirin [Aspirin EC] 81 mg PO DAILY 04/26/19 Review of Systems Unable to obtain ROS, reason: unremarkable - Review of Systems Constitutional: reports: No Symptoms Eyes: reports: No Symptoms HENT: reports: No Symptoms Neck: reports: No Symptoms Cardiovascular: reports: No Symptoms Respiratory: reports: No Symptoms Gastrointestinal: reports: No Symptoms Genitourinary: reports: No Symptoms Breasts: reports: No Symptoms Reported Musculoskeletal: reports: No Symptoms Integumentary: reports: No Symptoms, Erythema Neurological: reports: No Symptoms Endocrine: reports: No Symptoms Hematology/Lymphatic: reports: No Symptoms Psychiatric: reports: No Symptoms Physical Exam - Maternity Vital Signs: Vital Signs Temperature 98.4 F 06/04/19 16:19 Pulse Rate 84 06/04/19 16:19 Respiratory Rate 20 06/04/19 16:19 Blood Pressure 134/84 06/04/19 16:19 O2 Sat by Pulse Oximetry (%) Constitutional: Yes: No Distress, Calm HENT: Yes: Atraumatic Neck: Yes: Supple Cardiovascular: Yes: Regular Rate and Rhythm Breast(s): Yes: Other (deferred) - Abdominal Exam/OB Number of Fetuses: Single Category: I Accelerations: Uniform Decelerations: None - Vaginal Exam/OB Vaginal Bleediing: No, Yes Speculum Exam: Yes Dilatation (cm): 0.5 Effacement (%): 0 Amniotic Membrane Status: Intact (no pooling, no blood) Nitrazine Test: Negative Station: -3 - Physical Exam Musculoskeletal: Yes: WNL Extremities: Yes: WNL Edema: Yes Edema: LLE: Trace, RLE: Trace Integumentary: Yes: WNL ...Motor Strength: WNL Psychiatric: Yes: Alert, Oriented - Labs Lab Results: CBC, BMP 06/04/19 16:10 06/04/19 16:10 Imaging - Results Ultrasound: Report Reviewed Assessment/Plan 28 y/o @ 36.0 wks, severe IUGR, newly diagnosed borderline oligohydramnios , prior c/S x 2 and desires BTL. Patient discussed with MFM Dr Griffiths and decision for delivery made. Indication for delivery discussed and riks/ complications of procedure reviewed. Mode of sterilization discussed and patient opted for bilateral salpingectomy -Admit -Proceed with CD and BTL -Continuous monitoring
[2019-06-04] MEDS ORDERED: morphine SULFATE/PF 0.5 MG/ML (2cc Syringe - QUVA) ONE (19:32)
[2019-06-04] MEDS ORDERED: OXYTOCIN 20 UNITS in 0.9% NS 20 UNIT/1,000 ML INFUS.BAG IV ONE (19:36)
[2019-06-04] MEDS ORDERED: ceFAZolin SODIUM 1 GM VIAL ONE (19:39)
[2019-06-04] MEDS ORDERED: KETOROLAC TROMETHAMINE 30 MG/1 ML VIAL ONE (19:56)
[2019-06-04] MEDS ORDERED: OXYTOCIN 10 UNITS/ML VIAL ONE (20:09)
[2019-06-04] MEDS ORDERED: ePHEDrine SULFATE 50 MG/1 ML AMPULE ONE (20:39)
[2019-06-04] MEDS ORDERED: OXYTOCIN 20 UNITS in 0.9% NS 20 UNIT/1,000 ML INFUS.BAG IV SCH (20:45)
[2019-06-04] MEDS ORDERED: IBUPROFEN 800 MG/8 ML IJ IVPB PRN (20:49)
--- NOTE | 2019-06-04 20:59 | OP ---
Operative Note - Note: Operative Date: 06/04/19 (dic#[id number]) Pre-Operative Diagnosis: P2 @ 36wks, severe IUGR, prior c/s x 2, oligohydramnios , desiring sterilization Operation: RCS and bilateral salpingectomy Findings: see dictation Post-Operative Diagnosis: Same as Pre-op Surgeon: Les Chen Residential Direct Support Professional: Misael Hernández Anesthesia: Spinal Specimens Removed: bilateral tubes Estimated Blood Loss (mls): 700 Fluid Volume Replaced (mls): 1,300 Operative Report Dictated: Yes
[2019-06-05] MEDS ORDERED: OXYTOCIN 20 UNITS in 0.9% NS 20 UNIT/1,000 ML INFUS.BAG IV ONE (01:23)
[2019-06-05] MEDS ORDERED: CEFAZOLIN 1 GM/D5W 1 GM/50 ML BAG IVPB SCH (05:00)
[2019-06-05 07:21] LABS: BASO % 0.2 % (0-2.0); EOS % 1.1 % (0-4.5); HEMATOCRIT 32.1 % (32.4-45.2); HEMOGLOBIN 11.1 GM/dL (10.7-15.3); LYMPH % 19.6 % (8-40); MCH 31.1 pg (25.7-33.7); MCHC 34.7 g/dl (32.0-36.0); MEAN CELL VOLUME 89.7 fl (80-96); MEAN PLT VOLUME 8.5 fl (7.5-11.1); MONO % 4.3 % (3.8-10.2); NEUT % 74.8 % (42.8-82.8); PLATELET COUNT 213 K/MM3 (134-434); RBC 3.57 M/mm3 (3.60-5.2); RDW 15.7 % (11.6-15.6); WHITE BLOOD COUNT 9.5 K/mm3 (4.0-10.0)
--- NOTE | 2019-06-05 08:37 | PN ---
Post Progress Note - Subjective Subjective: PAtient is doing well, obrien in place, tolerating PO, lochia decreased. Post Day: 1 Type of Delivery: Repeat C/S Vital Signs: Vital Signs Temperature 98.1 F 06/05/19 06:00 Pulse Rate 82 06/05/19 06:00 Respiratory Rate 20 06/05/19 06:00 Blood Pressure 109/73 06/05/19 06:00 O2 Sat by Pulse Oximetry (%) 100 06/04/19 21:45 Breast Exam: Yes: Other Uterus: Yes: Fundus Firm Incision: Yes: Dressing dry and intact, [place] intact Abdomen/GI: Yes: Abdomen soft Lochia, amount: Moderate Extremities: Yes: Calves non-tender - Labs Labs: CBC WBC 9.5 K/mm3 (4.0-10.0) 06/05/19 06:35 RBC 3.57 M/mm3 (3.60-5.2) L 06/05/19 06:35 Hgb 11.1 GM/dL (10.7-15.3) 06/05/19 06:35 Hct 32.1 % (32.4-45.2) L 06/05/19 06:35 MCV 89.7 fl (80-96) 06/05/19 06:35 MCH 31.1 pg (25.7-33.7) 06/05/19 06:35 MCHC 34.7 g/dl (32.0-36.0) 06/05/19 06:35 RDW 15.7 % (11.6-15.6) H 06/05/19 06:35 Plt Count 213 K/MM3 (134-434) 06/05/19 06:35 MPV 8.5 fl (7.5-11.1) 06/05/19 06:35 Absolute Neuts (auto) 7.1 K/mm3 (1.5-8.0) 06/05/19 06:35 Neutrophils % 74.8 % (42.8-82.8) 06/05/19 06:35 Lymphocytes % 19.6 % (8-40) 06/05/19 06:35 Monocytes % 4.3 % (3.8-10.2) 06/05/19 06:35 Eosinophils % 1.1 % (0-4.5) 06/05/19 06:35 Basophils % 0.2 % (0-2.0) 06/05/19 06:35 Nucleated RBC % 0 % (0-0) 06/05/19 06:35 Assessment/Plan POD # 1 in stable condition, baby in NICU for IUGR -Continue PP/post-op care -Encourage ambulation -Continue post-op abx prophylaxis -Anticipate D/C home on POD # 3
[2019-06-05 09:43] LABS: POC NITRAZINE NEG
--- NOTE | 2019-06-05 10:01 | OP ---
DATE OF OPERATION: 06/04/2019 PREOPERATIVE DIAGNOSIS: A 28-year-old 3, para 2, with 2 prior sections, severe intrauterine growth restriction, oligohydramnios, desiring sterilization. POSTOPERATIVE DIAGNOSIS: A 28-year-old 3, para 2, with 2 prior sections, severe intrauterine growth restriction, oligohydramnios, desiring sterilization. PROCEDURE PERFORMED: Repeat low transverse section, bilateral salpingectomy. SURGEON: Luda Kilgore MD CAR DUMPER OPERATOR: IKER Neal ANESTHESIA: Spinal. ESTIMATED BLOOD LOSS: 700. INTRAVENOUS FLUIDS: Crystalloid 1300 mL. URINE OUTPUT: Clear. COMPLICATIONS: None. FINDINGS: A morbidly obese patient with a lower abdominal skin scar consistent with prior section. A significant amount of subcutaneous adipose tissue. The fascia was fibrotic and adherent to the underlying rectus muscles. The rectus muscles were fused to each other in the midline, the peritoneum, parietal peritoneum, omental adhesions and the bladder was adherent to the lower uterine segment. The lower uterine segment was NON-effaced, and thick. The infant was in cephalic presentation. Clear amniotic fluid, small for gestational age. Bilateral tubes and ovaries were consistent with normal anatomy. DESCRIPTION OF PROCEDURE: The patient was taken to the operating room, where anesthesia was found to be adequate. She was then prepped and draped in a normal sterile fashion. A urinary Krueger catheter was placed atraumatically. A proper time-out took place. A Pfannenstiel skin incision was done with the scalpel, following the prior section scar. The incision was carried through the underlying fascia with the Bovie. The fascia was incised in the midline and the incision extended laterally with sharp dissection. The underlying rectus muscles were dissected off sharply. The rectus muscles were elevated in the midline with Allis clamps and transected superiorly with the scalpel. Entry into the peritoneal cavity was achieved bluntly. The incision was extended laterally with blunt dissection and additionally sharply superiorly and inferiorly. A bladder blade was placed in the lower uterine segment as mentioned previously. Omental adhesions were taken down. A transverse lower uterine segment incision was made with a scalpel and extended laterally with blunt dissection. Amniotomy revealed clear amniotic fluid, infant in cephalic presentation, and delivered through the surgical incision with mild fundal pressure without difficulty. Umbilical cord was clamped after delay and samples for gasses and blood obtained. The was handed off to the NICU staff. The placenta was delivered manually and intact. The uterus was exteriorized through the surgical incision and the hysterotomy incision was reapproximated with 1-0 Polysorb running locked sutures. Excellent reapproximation with 1 layer of suture. A 2nd layer of the same suture performed to achieve excellent hemostasis. Attention then was directed to the right fallopian tube, which underwent excision with the LigaSure instrument without difficulty. The surgical bed was noted to be dry. Attention then was directed to the contralateral fallopian tube, which underwent the exact same procedure just described. The surgical bed was dry. The uterus was internalized to pelvic cavity. Gutters were cleared of all clots and debris. Inspection of the lower uterine segment revealed excellent hemostasis once again. Bladder dome and rectus muscle-fascial interface was noted to be intact, with no evidence of trauma. The fascial incision was reapproximated with 0 Polysorb running non-locking sutures. Excellent structural reapproximation achieved and confirmed by the use of palpation by the surgeon. The subcutaneous tissues were copiously irrigated and reapproximated with 2-0 chromic suture. The skin incision was reapproximated with surgical chiara. The patient tolerated the procedure well and went to the recovery room in stable condition. Instrument count was reported as correct x2 by the staff. LUDA KILGORE MD LM/[id number] MTDD
--- NOTE | 2019-06-05 10:15 | PN ---
Progress Note (short form) - Note Progress Note: Anesthesia Post Op Note Pt seen s/p spinal for c/section Pt awake alert denies h/a, n/v Pt reports good pain control + puritis - instructed to request sami Krueger in situ VSS no apparent anesthesia complications Marlen Michael.
[2019-06-05] MEDS: SIMETHICONE 80 MG TAB.CHEW (FP) PO PRN ×2 (11:00→18:32)
[2019-06-05] MEDS: oxyCODONE HCL 5 MG TABLET PO PRN ×2 (11:00→18:31)
[2019-06-05] MEDS ORDERED: CEFAZOLIN 1 GM in DEXTROSE 5%-WATER - 50 ML IVPB SCH (13:00)
[2019-06-05] MEDS: IBUPROFEN 600 MG TABLET (FP) PO PRN ×2 (13:33→18:30)
[2019-06-05] MEDS: CEFAZOLIN 1 GM/D5W 1 GM/50 ML BAG IVPB SCH ×2 (13:50→22:21)
[2019-06-05] MEDS ORDERED: BISACODYL 10 MG SUPP.RECT RC PRN (20:45)
[2019-06-06] MEDS: SIMETHICONE 80 MG TAB.CHEW (FP) PO PRN ×5 (00:57→21:56)
[2019-06-06] MEDS: IBUPROFEN 600 MG TABLET (FP) PO PRN ×5 (00:57→21:56)
[2019-06-06] MEDS: oxyCODONE HCL 5 MG TABLET PO PRN ×4 (00:57→21:56)
--- NOTE | 2019-06-06 08:32 | PN ---
Post Progress Note - Subjective Subjective: c/o pain scale max 10/10 voiding without difficulty bm not done Post Day: 2 Type of Delivery: Repeat C/S Vital Signs: Vital Signs Temperature 97.5 F L 06/05/19 21:06 Pulse Rate 93 H 06/05/19 21:06 Respiratory Rate 20 06/05/19 21:06 Blood Pressure 118/72 06/05/19 21:06 O2 Sat by Pulse Oximetry (%) 100 06/04/19 21:45 Breast Exam: Yes: Soft, Other (not BF ). No: Engorged Uterus: Yes: Fundus Firm, Fundus below umbilicus Incision: Yes: Elías intact. No: Redness, Oozing Abdomen/GI: Yes: Abdomen soft, Passing flatus, Tolerating PO (diet). No: Abdominal Distention, Tender Lochia: Yes: Rubra Lochia, amount: Moderate Extremities: Yes: Calves non-tender Perineum: Yes: Intact Activity: Ambulating - Labs Labs: CBC WBC 9.5 K/mm3 (4.0-10.0) 06/05/19 06:35 RBC 3.57 M/mm3 (3.60-5.2) L 06/05/19 06:35 Hgb 11.1 GM/dL (10.7-15.3) 06/05/19 06:35 Hct 32.1 % (32.4-45.2) L 06/05/19 06:35 MCV 89.7 fl (80-96) 06/05/19 06:35 MCH 31.1 pg (25.7-33.7) 06/05/19 06:35 MCHC 34.7 g/dl (32.0-36.0) 06/05/19 06:35 RDW 15.7 % (11.6-15.6) H 06/05/19 06:35 Plt Count 213 K/MM3 (134-434) 06/05/19 06:35 MPV 8.5 fl (7.5-11.1) 06/05/19 06:35 Absolute Neuts (auto) 7.1 K/mm3 (1.5-8.0) 06/05/19 06:35 Neutrophils % 74.8 % (42.8-82.8) 06/05/19 06:35 Lymphocytes % 19.6 % (8-40) 06/05/19 06:35 Monocytes % 4.3 % (3.8-10.2) 06/05/19 06:35 Eosinophils % 1.1 % (0-4.5) 06/05/19 06:35 Basophils % 0.2 % (0-2.0) 06/05/19 06:35 Nucleated RBC % 0 % (0-0) 06/05/19 06:35 Problem List - Problems (1) Status post section routine follow-up Code(s): Z39.2 - ENCOUNTER FOR ROUTINE FOLLOW-UP; Z98.891 - HISTORY OF UTERINE SCAR FROM PREVIOUS SURGERY Assessment/Plan stable encourage ambulation, deep breathing & po fluids
[2019-06-06] MEDS ORDERED: FLU VACCINE QUAD 60 MCG/0.5 ML (MDV 19-20) IM ONE (10:00)
[2019-06-06] MEDS ORDERED: FLU VACC QS2019-20(6MOS UP)/PF 60 MCG/0.5 ML SYRINGE IM ONE (10:00)
[2019-06-07 08:41] LABS: BASO % 0.1 % (0-2.0); EOS % 1.7 % (0-4.5); HEMATOCRIT 30.5 % (32.4-45.2); HEMOGLOBIN 10.5 GM/dL (10.7-15.3); LYMPH % 14.1 % (8-40); MCH 30.8 pg (25.7-33.7); MCHC 34.3 g/dl (32.0-36.0); MEAN CELL VOLUME 89.8 fl (80-96); MEAN PLT VOLUME 7.9 fl (7.5-11.1); MONO % 3.2 % (3.8-10.2); NEUT % 80.9 % (42.8-82.8); PLATELET COUNT 225 K/MM3 (134-434); RDW 15.5 % (11.6-15.6); WHITE BLOOD COUNT 9.3 K/mm3 (4.0-10.0)
[2019-06-07] MEDS: IBUPROFEN 600 MG TABLET (FP) PO PRN (09:03)
[2019-06-07] MEDS: oxyCODONE HCL 5 MG TABLET PO PRN (09:04)
[2019-06-07 13:58] VITALS: BP 118/72; PULSE 92; TEMP 98.8
--- NOTE | 2019-06-13 16:26 | PATH ---
Surgical Pathology Report Patient Name: SIMONE HODGSON [facility]. Rec. 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 PLACENTA: THIRD TRIMESTER PLACENTA WITH FOCAL INFARCTION (1.5 CM IN GREATEST DIMENSION). TRIVASCULAR CORD. MEMBRANES WITH NO DIAGNOSTIC ABNORMALITIES. B. LABELED "RIGHT FALLOPIAN TUBE AND OVARY", SALPINGECTOMY: PORTION OF FALLOPIAN TUBE WITH PARATUBAL CYST. COMPLETE CROSS SECTION OF THE FALLOPIAN TUBE LUMEN IDENTIFIED. NO OVARIAN TISSUE PRESENT. SEE COMMENT. C. LABELED "LEFT FALLOPIAN TUBE AND OVARY", SALPINGECTOMY: COMPLETE CROSS SECTION OF THE FALLOPIAN TUBE LUMEN IDENTIFIED. NO OVARIAN TISSUE PRESENT. SEE COMMENT. Comment: Operative report has been reviewed. Electronically Signed Tamie Broderick M.D. Gross Description A. The specimen is received fresh labeled placenta and is a 391 gram, 13.5 x 11.5 x 2.7 cm. placenta with attached membranes and umbilical cord. The attached membranes are flores, thick, cloudy and insert marginally. The umbilical cord measures 10 cm. in length and averages 0.9 cm. in diameter. The cord inserts eccentrically, 4 cm. to the nearest margin. No true knots or strictures are identified. Cut surface of the umbilical cord reveals 3 vessels. The surface is velarde-blue with minimal fibrin deposition and appropriate caliber vessels. The maternal surface is red-brown and intact. Sectioning reveals a 1.5 cm in greatest dimension hemorrhagic lesion. The remaining placental parenchyma is red-brown and spongy. Unleavened Dough Mixer sections are submitted in three cassettes as follows: 1-membrane roll and umbilical cord; 2-lesion; 3-[id number] section of placenta. B. Received in formalin labeled "right tube and ovary," is a 7 cm in length fimbriated portion of fallopian tube. The outer surface is flores-ordoñez with a 2.0 cm in greatest dimension paratubal cyst attached to the fimbria. Sectioning of the fallopian tube reveals an unremarkable lumen. There is no ovary present, despite the indication on the requisition and the container. Unleavened Dough Mixer sections are submitted in 2 cassettes as follows: 1-fimbria; 2-cross sections of fallopian tube. C. Received in formalin labeled "left tube and ovary," is a 7 cm in length fimbriated portion of fallopian tube. The outer surface is flores-ordoñez and smooth. Sectioning reveals an unremarkable lumen. There is no ovary present, despite the indication on the requisition and the container. Unleavened Dough Mixer sections are submitted in 2 cassettes as follows: 1-fimbria; 2-cross sections of fallopian tube. 06/11/2019 [facility]/2019
== END 2019-06-07 11:45 | disposition home or self-care (01) | DRG 785 ==
LOC: JLDR 15:25 → J3W 06-05 02:10
PROVIDERS: ADMIT Student in an Organized Health Care Education/Training Program; ATTEND Student in an Organized Health Care Education/Training Program
PROC: 10D00Z1 Extraction of Products of Conception, Low, Open Approach (ICD-10-PCS; principal; 2019-06-04)
PROC: 0UB70ZZ Excision of Bilateral Fallopian Tubes, Open Approach (ICD-10-PCS; 2019-06-04)
DX: O41.03X0 Oligohydramnios, third trimester, not applicable or unspecified (principal); O34.219 Maternal care for unspecified type scar from previous cesarean delivery; O36.5990 Maternal care for other known or suspected poor fetal growth, unspecified trimester, not applicable or unspecified; Z3A.36 36 weeks gestation of pregnancy; Z37.0 Single live birth; Z30.2 Encounter for sterilization
CPT/HCPCS: 36415; 36600; 80048; 82803; 83986-QW; 85025; 85610; 85730; 86593; 86850; 86900; 86901; 87389; 88302-TC; 88307-TC; 90686